=== PATIENT | male | born 1965 ===

== ENCOUNTER 2017-02-02 06:37 | Day surgery (SDC) | payer MEDICARE ==
[2017-01-19 14:16] VITALS: BMI 37.6
[2017-02-02] MEDS ORDERED: Lidocaine 2% w Epi 1:100,000 Inj IJ ONE (07:35)
[2017-02-02] MEDS ORDERED: Lactated Ringer's 1,000 ML IV ONE (07:50)
[2017-02-02] MEDS ORDERED: Propofol 10 mg/ml Inj (20 ML) ONE (07:51)
[2017-02-02] MEDS ORDERED: Midazolam 2 MG/2 ML VIAL ONE (07:51)
[2017-02-02] MEDS ORDERED: Clindamycin 300 mg/2 ml Inj ONE (08:08)
[2017-02-02] MEDS ORDERED: Succinylcholine Chloride 20 mg/ml Syr (5 ml) IV ONE (09:40)
[2017-02-02] MEDS ORDERED: Rocuronium 10 mg/ml (5 ml) ONE (09:40)
[2017-02-02] MEDS ORDERED: Neostigmine Methylsulfate 3mg/3ml Syringe IV ONE (09:40)
[2017-02-02] MEDS ORDERED: Dexamethasone 4 mg/1 ml IVP PRN (09:52)
[2017-02-02] MEDS ORDERED: Albuterol 0.083% Inhal Sol (2.5 mg/3 mL) UD INH PRN (09:52)
--- NOTE | 2017-02-02 09:52 | PCM.SURG1 ---
Surgeon's Initial Post Op Note - Surgeon's Notes Surgeon: Destiny Falcon MD Database Security Administrator: Jas Cardoso PA-C Type of Anesthesia: General Endo Anesthesia Administered By: Dr. Hernandez/Ángel LAUREANO Pre-Operative Diagnosis: Right knee ACL tear, medial and lateral meniscal tears , chrondromalacia Operative Findings: tourniquet not used. Arthrex implants Post-Operative Diagnosis: same. lateral tibial plateau chondromalacia Operation Performed: 1. Arthroscopic right knee ACL reconstruction with allograft. 2. Partial medial and lateral meniscectomy. 3. Chondroplasty lateral tibial plateau and femoral condyle Specimen/Specimens Removed: none Estimated Blood Loss: EBL {In ML}: 10 Blood Products Given: N/A Drains Used: No Drains Post-Op Condition: Fair Date of Surgery/Procedure: 02/02/17 Time of Surgery/Procedure: 09:52
[2017-02-02] MEDS ORDERED: Oxycodone/Acetaminophen 5/325 mg Tab PO PRN (09:53)
--- NOTE | 2017-02-02 10:03 | OP ---
PROCEDURE DATE: 02/02/2017 PREOPERATIVE DIAGNOSES: Right knee anterior cruciate ligament sprain, medial and lateral meniscal te ars and degenerative joint disease. POSTOPERATIVE DIAGNOSES: Right knee anterior cruciate ligament sprain, medial and lateral meniscal t ears and degenerative joint disease. PROCEDURE: Right knee examination under anesthesia, right knee arthroscopy with ACL reconstruction a nd medial and lateral meniscectomies. SURGEON: Ridge Falcon M.D. GRINDER SET UP OPERATOR: James Cardoso, physician lead dental assistant. Ms Cardoso was scrubbed and present throughout the danna e and assisted was bandaging, holding the camera while the ACL reconstruction was performed as well a s graft preparation. ANESTHESIA: General. COMPLICATIONS: None. ESTIMATED BLOOD LOSS: 10 mL. INDICATIONS FOR PROCEDURE: This is a 51-year-old gentleman who presented with complaints of right kn ee pain and swelling as well as instability. Clinical examination was consistent with severe lateral joint line tenderness, medial joint line tenderness and positive Denice. MRI was consistent with a partial tear of his ACL as well as complex tear of the anterior horn of his lateral meniscus as well as a tear of the posterior horn of the medial meniscus. Recommendations were for right knee arthros copy. The risks, benefits, and alternatives of procedure were discussed with the patient and informe d consent was obtained. OPERATIVE PROCEDURE: After surgical site was signed and verified in preoperative holding area, the p atient was taken to the operating room and placed supine on the operating table. After the administr ation of general anesthesia, the patient received 900 mg of clindamycin IV. An examination under ane sthesia was performed. The patient was noted to have a 2+ Denice and the patient was noted to have a positive pivot. At this point, patient was positioned on the OR table. A lateral post was placed on the lateral aspect of the thigh and Venodyne boot was placed on the nonoperative extremity and the right lower extremity was prepped and draped in usual sterile fashion. Bony landmarks were identifi ed about the right knee and our portal sites were injected with a total of 10 mL of 1% lidocaine with epinephrine. An anterolateral arthroscopy portal was established and arthroscope inserted into the knee joint. Patellofemoral articulation was evaluated. The patient was noted to have some mild raymundo llar tilt. The patient was noted to also have some grade I to grade II chondromalacia of the patello femoral articulation. Medial and lateral gutters as well as suprapatellar recess were noted to be fr ee of any loose bodies or pathologic plica. Next, through an anteromedial portal, the medial compart ment was evaluated. The medial meniscus was probed. The patient was noted to have a small tear of vu mcclure posterior horn of the medial meniscus. Using a combination of basket forceps and a full-radius sh aver, a meniscectomy was performed resecting the meniscus back to a stable rim. The chondral surface s of the medial compartment did have some grade I changes. At this point, the intercondylar notch wa s evaluated. ACL was well visualized. The ACL appeared to be torn off its femoral insertion and ess entially lying flat. PCL was also well visualized and appeared to be intact. Prior to addressing pan kim ACL, the lateral compartment was evaluated. Chondral surface of the lateral tibial plateau was not ed to have some grade III to grade IV chondromalacia. The lateral meniscus was probed and the patien t was noted to have a complex tear encompassing almost the entire anterior horn, extending into the m idportion of the meniscus. Using basket forceps and a full-radius shaver, a meniscectomy. Once this was done, only a small rim of meniscal tissue was left at the junction of the anterior horn to the m id body of the meniscus. In order to have a complete transection of the meniscus, a small cleavage c omponent of the meniscus was still present and this was shaved back in order to prevent complete schmidt section of the meniscus. At this point, our attention was directed back into the intercondylar notch . Using an electrocautery device and the shaver, the remnant of the ACL was debrided. The footprint was also well defined as well as the medial aspect of the lateral femoral condyle. Using a bur, a n otchplasty was performed. At this point, while this was being done, the allograft was prepared by pan kim lead dental assistant on the back table and was sized and appropriately tensioned. Next, using the FlipCutter, a femoral tunnel was drilled and a suture was placed to allow for graft passage. Similarly, using vu mcclure Arthrex tibial tunnel guide, our tibial tunnel was also drilled. Any debris was removed using the shaver and at this point, our graft was removed off the tensioning device and recessed. The femoral fixation was an Arthrex button that was deployed on the anterolateral cortex of the distal femur. T ension was applied on the tibial side confirming good fixation. The graft was then recessed to the a ppropriate depth and the knee was cycled several times. No evidence of any impingement was appreciat ed. The patient had full extension. Finally, the graft was fixed on the tibial side using a bioabso rbable screw with the knee held in extension. At this point, an intraoperative Denice was performed and the patient was noted to have a 0 Denice. Any remaining debris was removed using the shaver an d our incisions were closed in a layered fashion. Sterile dressing was applied and a knee immobilize r was placed. The patient was awakened from the procedure and taken to recovery room in stable and s atisfactory condition. Ridge Falcon MD cc: [id number] TT: 02/02/2017 10:02:06 tn
[2017-02-02] MEDS: HYDROmorphone 0.5 mg/0.5 ml ISec IVP PRN ×4 (10:05→11:55)
[2017-02-02] MEDS ORDERED: Bupivacaine HCl 0.5% PF (10 ml) Inj ONE (10:40)
[2017-02-02] MEDS ORDERED: Bupivacaine HCl 0.25% PF (10 ml) Inj ONE ×2 (10:41)
[2017-02-02] MEDS ORDERED: Lidocaine Hydrochloride 5 ML INJ ONE (10:42)
[2017-02-02] MEDS ORDERED: Midazolam 2 MG/2 ML VIAL IVP STA (12:03)
--- NOTE | 2017-02-02 12:59 | RAD ---
PROCEDURE: Right Knee Radiographs. Portable study 10:30. HISTORY: s/p acl recon COMPARISON: None. FINDINGS: BONES: Expected postoperative findings status post ACL repair. JOINTS: Normal. No osteoarthritis. JOINT EFFUSION: None. OTHER FINDINGS: Soft tissues swelling with primarily laterally. IMPRESSION: Satisfactory postoperative status.
[2017-02-02 13:18] VITALS: O2SAT 96
[2017-02-02 15:27] VITALS: BP 124/81; PULSE 83; RESP 20; TEMP 98
== END 2017-02-02 15:15 | disposition home or self-care (01) ==
LOC: C.SDS 06:37
PROVIDERS: ATTEND Orthopaedic Surgery
DX: S83.511S Sprain of anterior cruciate ligament of right knee, sequela (principal); M23.241 Derangement of anterior horn of lateral meniscus due to old tear or injury, right knee; M23.221 Derangement of posterior horn of medial meniscus due to old tear or injury, right knee; M17.11 Unilateral primary osteoarthritis, right knee
CPT/HCPCS: 29867; 29880; 29888; 73560; 97116; 97161; G8978; G8979; G8980; J0131; J1170; J1885; J2001; J2250; J2405; J2704; J2710; J3010; J7120

== ENCOUNTER 2017-02-04 13:58 | Emergency (ER) | payer MEDICARE ==
[2017-02-04 14:01] VITALS: BMI 37.6
--- NOTE | 2017-02-04 15:13 | C.PDOC ---
History Of Present Illness 51 year old male presents to the ED with complaints of right knee pain. Patient states he is 2 days s/p surgery performed by Dr. Lorenzo for ACL repair. He also notes he had a panic attack today, and feels short of breath and anxious due to being indoors. He reports taking Percocet makes him feel worse, and denies calf pain, chest pain, fever, or any other complaints at this time. Chief Complaint (Nursing): Lower Extremity Problem/Injury History Per: Patient History/Exam Limitations: no limitations Onset/Duration Of Symptoms: Days Current Symptoms Are (Timing): Still Present Severity: Mild Past Medical History Reviewed: Historical Data, Nursing Documentation, Vital Signs Vital Signs: Last Vital Signs Temp 97.8 F 02/04/17 16:39 Pulse 97 H 02/04/17 16:39 Resp 18 02/04/17 16:39 BP 130/86 02/04/17 16:39 Pulse Ox 96 02/04/17 16:39 - Medical History PMH: Anxiety, Asthma, Hypercholesterolemia ("PURE HYPERCHOLESTEROLEMIA") - [facility] Procedures ANESTH INJECT-SPIN CANAL (06/27/15) INJECT STEROID (06/27/15) INJECT/INFUSE NEC (07/25/04) LUMBOSAC SPINE X-RAY NEC (06/27/15) SPINAL CANAL INJECT NEC (06/27/15) Family History: States: Unknown Family Hx - Social History Hx Alcohol Use: Yes (OCCASIONAL) Hx Substance Use: Yes - Immunization History Hx Tetanus Toxoid Vaccination: No Hx Influenza Vaccination: No Hx Pneumococcal Vaccination: No Review Of Systems Except As Marked, All Systems Reviewed And Found Negative. Constitutional: Negative for: Fever, Chills Cardiovascular: Negative for: Chest Pain, Palpitations Respiratory: Positive for: Shortness of Breath. Negative for: Cough Gastrointestinal: Negative for: Nausea, Vomiting Musculoskeletal: Positive for: Other (+Right knee pain) Neurological: Negative for: Weakness, Numbness Psych: Positive for: Anxiety Physical Exam - Physical Exam Appears: Non-toxic, Other (+Obese + Anxious) Skin: Warm, Dry, No Diaphoretic Head: Atraumatic, Normacephalic Eye(s): bilateral: Normal Inspection Oral Mucosa: Moist Neck: Normal ROM Chest: Symmetrical, No Deformity Cardiovascular: Rhythm Regular, No Murmur Respiratory: Normal Breath Sounds, No Accessory Muscle Use, No Rales, No Rhonchi , No Wheezing Extremity: No Calf Tenderness, Other (+Knee immobilizer to the right knee) Pulses: Left Dorsalis Pedis: Normal, Right Dorsalis Pedis: Normal Neurological/Psych: Oriented x3, Normal Speech, Normal Cognition, Normal Sensation ED Course And Treatment O2 Sat by Pulse Oximetry: 99 (Nasal cannula) Pulse Ox Interpretation: Normal Medical Decision Making Medical Decision Making: Impression: 51 year old male with right knee pain and anxiety. Plan: * O2 * Ultram * Xanax * Reassess Progress: Case discussed with SALVADOR Ramirez (Ortho) who spoke to Dr. Lorenzo and advised discharge and follow up in office Patient stable for discharge Disposition Counseled Patient/Family Regarding: Need For Followup, Rx Given - Disposition Referrals: Ridge Falcon MD [Staff Provider] - Disposition: HOME/ ROUTINE Disposition Time: 16:03 Condition: IMPROVED Additional Instructions: Follow up with your ortho Prescriptions: traMADol [Ultram] 50 mg PO Q8 #20 tab Instructions: Knee Pain (ED) - POA Present On Arrival: None - Clinical Impression Clinical Impression: Anxiety attack, Drug side effects, Knee pain - PA / SAW REPAIRER / Resident Statement MD/DO has reviewed & agrees with the documentation as recorded. - Scribe Statement The provider has reviewed the documentation as recorded by the Scribe Jordana Serrato. All medical record entries made by the Scribe were at my direction and personally dictated by me. I have reviewed the chart and agree that the record accurately reflects my personal performance of the history, physical exam, medical decision making, and the department course for this patient. I have also personally directed, reviewed, and agree with the discharge instructions and disposition.
[2017-02-04 16:40] VITALS: BP 130/86; PULSE 97; RESP 18; TEMP 97.8
[2017-02-04 17:47] VITALS: O2SAT 99
== END 2017-02-04 16:50 | disposition home or self-care (01) ==
LOC: C.ER 13:58
DX: F41.9 Anxiety disorder, unspecified (principal); T50.905A Adverse effect of unspecified drugs, medicaments and biological substances, initial encounter; M25.561 Pain in right knee

== ENCOUNTER 2017-03-02 17:55 | Observation (INO) | payer MEDICARE, OTHER ==
[2017-03-02 17:55] VITALS: BMI 37.6
--- NOTE | 2017-03-02 18:20 | C.PDOC ---
History Of Present Illness 51M c/o right ankle pain and swelling for the last month since he had right knee surgery. he said he saw his pcp yesterday who gave him abx and he says the swelling is better today after taking these. he denies any fever, chills, n/v, or other systemic sx. Time Seen by Provider: 03/02/17 18:16 Chief Complaint (Nursing): Abnormal Skin Integrity Past Medical History Vital Signs: Last Vital Signs Temp 97.8 F 03/02/17 18:00 Pulse 105 H 03/02/17 18:00 Resp 18 03/02/17 18:00 BP 152/74 H 03/02/17 18:00 Pulse Ox 97 03/02/17 18:39 - Medical History PMH: Anxiety, Asthma, Hypercholesterolemia ("PURE HYPERCHOLESTEROLEMIA") Denies: Chronic Kidney Disease Surgical History: Denies: Pacemaker - [facility] Procedures ANESTH INJECT-SPIN CANAL (06/27/15) INJECT STEROID (06/27/15) INJECT/INFUSE NEC (07/25/04) LUMBOSAC SPINE X-RAY NEC (06/27/15) SPINAL CANAL INJECT NEC (06/27/15) Family History: States: Other Other Family History: nc - Social History Hx Alcohol Use: Yes (OCCASIONAL) Hx Substance Use: Yes - Immunization History Hx Tetanus Toxoid Vaccination: No Hx Influenza Vaccination: No Hx Pneumococcal Vaccination: No Review Of Systems Except As Marked, All Systems Reviewed And Found Negative. Constitutional: Negative for: Fever, Chills, Weakness, Malaise Eyes: Negative for: Vision Change Cardiovascular: Negative for: Chest Pain Respiratory: Negative for: Cough, Shortness of Breath Gastrointestinal: Negative for: Nausea, Vomiting, Abdominal Pain Musculoskeletal: Positive for: Other (ankle pain) Neurological: Negative for: Weakness, Numbness Physical Exam - Physical Exam Appears: Non-toxic, No Acute Distress Skin: Warm, Dry Head: Atraumatic Eye(s): bilateral: PERRL Oral Mucosa: Moist Neck: Normal ROM Cardiovascular: Rhythm Regular Respiratory: No Decreased Breath Sounds, No Accessory Muscle Use Gastrointestinal/Abdominal: Soft, No Tenderness Extremity: Normal ROM, Swelling (right ankle- rom normal, some warmth, no redness) Pulses: Left Dorsalis Pedis: Normal, Right Dorsalis Pedis: Normal Neurological/Psych: Oriented x3, Normal Motor, Normal Sensation, Other (no focal deficits) ED Course And Treatment O2 Sat by Pulse Oximetry: 97 Medical Decision Making Medical Decision Makin disc w Dr Falcon- rec give IV abx and admit and he will see in the am. will cover maría ham. Disposition - Disposition Disposition: HOSPITALIZED Disposition Time: 18:39 Condition: STABLE - Clinical Impression Clinical Impression: Cellulitis, Ankle swelling
[2017-03-02] MEDS ORDERED: Sodium Chloride 0.9% 1,000 ML IV ONE (18:30)
[2017-03-02] MEDS ORDERED: Enoxaparin 100 mg Syringe SC STA (18:37)
[2017-03-02 19:02] LABS: BASO # 0.1 K/uL (0.0-0.2); BASO % 0.6 % (0.0-2.0); EOS # 0.4 K/uL (0.0-0.7); EOS % 3.2 % (0.0-4.0); HEMATOCRIT 38.8 % (35.0-51.0); LYMPH # 2.3 K/uL (1.0-4.3); LYMPH % 19.4 % (20.0-40.0); MEAN CELL VOLUME 83.5 fL (80.0-94.0); MEAN CORPUSCULAR HEMOGLOBIN 28.3 pg (27.0-31.0); MEAN CORPUSCULAR HGB CONC 33.9 g/dL (33.0-37.0); MEAN PLATELET VOLUME 7.3 fL (7.2-11.7); MONO # 1.1 K/uL (0.0-0.8); MONO % 9.2 % (0.0-10.0); VENOUS BLOOD GAS BASE EXCESS 5.2 mmol/L (0.0-2.0); VENOUS BLOOD GAS PCO2 43 mmHg (40-60); VENOUS BLOOD PH 7.45 (7.32-7.43); WHITE BLOOD COUNT 11.6 K/uL (4.8-10.8)
[2017-03-02] MEDS ORDERED: Enoxaparin 30 mg Syringe ONE (19:05)
[2017-03-02] MEDS ORDERED: Enoxaparin 80 mg Syringe ONE (19:05)
[2017-03-02] MEDS ORDERED: Clindamycin 600mg/50ml D5W 600 MG/50 ML VIAL IVPB ONE (19:06)
[2017-03-02 19:10] LABS: CHLORIDE 98 mmol/L (98-107)
[2017-03-02 19:11] LABS: POTASSIUM 3.8 mmol/L (3.6-5.2); SODIUM 139 mmol/L (132-148)
[2017-03-02 19:13] LABS: ALB/GLOB RATIO 1.2 (1.0-2.1); ALKALINE PHOSPHATASE 78 U/L (38-126); ALT/SGPT 24 U/L (21-72); AST/SGOT 19 U/L (17-59); BILIRUBIN,TOTAL 0.7 mg/dL (0.2-1.3); BLOOD UREA NITROGEN 13 mg/dL (9-20); CARBON DIOXIDE 29 mmol/L (22-30); GFR AFRICAN-AMERICAN > 60; TOTAL PROTEIN 7.6 g/dL (6.3-8.3)
[2017-03-02 19:14] LABS: CALCIUM 8.7 mg/dl (8.6-10.4); GLUCOSE,RANDOM 117 mg/dL (75-110)
[2017-03-02 19:15] VITALS: RESP 20
[2017-03-02] MEDS ORDERED: Enoxaparin 40 mg Syringe SC ONE (22:16)
[2017-03-02] MEDS ORDERED: Oxycodone/Acetaminophen 5/325 mg Tab PO PRN (22:19)
[2017-03-03] MEDS: Clindamycin 600mg/50ml D5W 600 MG/50 ML VIAL IVPB SCH ×2 (04:06→11:11)
[2017-03-03 04:39] VITALS: TEMP 97.6; O2SAT 98
--- NOTE | 2017-03-03 06:49 | CP.PCM.HP ---
History of Present Illness - History of Present Illness History of Present Illness: 51M s/p right knee arthroscopic ACL reconstruction with allograft 02/02/2017 complains of right ankle pain and swelling post operatively. He says that his primary care doctor said that his knee was infected and started him on antibiotics yesterday, which helped some. He says he is most concerned with ankle swelling and pain, and that it hurts so much that he can't walk well. He currently denies knee pain. Denies fever/chills. Denies any CP/SOB/dizziness/ palpitations. Denies drainage from surgical site wounds. He says he is not sleeping well, but he slept well last night while in hospital . Present on Admission - Present on Admission Any Indicators Present on Admission: No Review of Systems - Review of Systems All systems: reviewed and no additional remarkable complaints except - Constitutional Constitutional: As Per HPI - Cardiovascular Cardiovascular: As Per HPI - Musculoskeletal Musculoskeletal: As Per HPI - Neurological Neurological: As Per HPI - Hematologic/Lymphatic Hematologic: absent: As Per HPI, Easy Bleeding, Easy Bruising, Lymphadenopathy, Other Past Patient History - Past Medical History & Family History Past Medical History?: Yes - Past Social History Smoking Status: Current Some Days Smoker - CARDIAC Hx Hypercholesterolemia: Yes ("PURE HYPERCHOLESTEROLEMIA") Hx Pacemaker: No - PULMONARY Hx Asthma: Yes - NEUROLOGICAL Hx Neurological Disorder: No Hx Paralysis: No - HEENT Hx HEENT Problems: No - RENAL Hx Chronic Kidney Disease: No - ENDOCRINE/METABOLIC Hx Diabetes Mellitus Type 2: (DENIES DIABETES) - INTEGUMENTARY Hx Dermatological Problems: No - MUSCULOSKELETAL/RHEUMATOLOGICAL Hx Musculoskeletal Disorders: Yes Hx Falls: No Other/Comment: MENISCAL TEAR RIGHT KNEE - GASTROINTESTINAL Hx Gastrointestinal Disorders: No - GENITOURINARY/GYNECOLOGICAL Hx Genitourinary Disorders: No - PSYCHIATRIC Hx Anxiety: Yes Hx Substance Use: Yes - SURGICAL HISTORY Hx Surgeries: Yes Hx Orthopedic Surgery: Yes (RIGHT KNEE MINISCUS REPAIR) Other/Comment: spinal surgey. HX: RIGHT L5-S1 SELECTIVE ROOT NERVE BLOCK(). - ANESTHESIA Hx Anesthesia: Yes Hx Anesthesia Reactions: No Hx Malignant Hyperthermia: No Meds Allergies/Adverse Reactions: Allergies Allergy/AdvReac Type Severity Reaction Status Date / Time Penicillins Allergy RASH Verified 03/02/17 18:03 cats Allergy RASH Uncoded 03/02/17 18:03 Physical Exam - Constitutional Appears: Well, No Acute Distress - Extremities Exam Additional comments: RLE: mild swelling to right ankle and foot. No erythema. No lower leg swelling. Generalized tenderness to ankle and foot. +DP/PT pulses. Full ROM of ankle with minimal pain. Right knee: all incision sites dry. Mild incisional erythema. Noted area of swelling to distal most incision site, ? suture abscess. This area is non tender. No pain with ROM of knee. No joint effusion, stable post operative appearance of knee joint. No warmth. Calves soft NT neg homans. Sensation intact RLE Results - Vital Signs Recent Vital Signs: Last Vital Signs Temp 97.6 F 03/02/17 23:10 Pulse 83 03/02/17 23:10 Resp 20 03/02/17 23:10 BP 132/88 03/02/17 23:10 Pulse Ox 98 03/02/17 23:10 - Labs Result Diagrams: 03/02/17 18:55 03/02/17 18:55 Labs: Laboratory Results - last 24 hr 03/02/17 03/02/17 03/02/17 18:55 18:55 18:55 WBC 11.6 H RBC 4.64 Hgb 13.1 Hct 38.8 MCV 83.5 MCH 28.3 MCHC 33.9 RDW 14.0 Plt Count 431 H MPV 7.3 Neut % (Auto) 67.6 Lymph % (Auto) 19.4 L Pitkin % (Auto) 9.2 Eos % (Auto) 3.2 Baso % (Auto) 0.6 Neut # 7.9 H Lymph # 2.3 Pitkin # 1.1 H Eos # 0.4 Baso # 0.1 ESR 40 H pO2 55 VBG pH 7.45 H VBG pCO2 43 VBG HCO3 28.8 VBG Total CO2 31.2 H VBG O2 Sat (Calc) 93.2 H VBG Base Excess 5.2 H VBG Potassium 3.7 Sodium 140.0 139 Chloride 106.0 98 Glucose 111 H Lactate 1.5 Potassium 3.8 Carbon Dioxide 29 Anion Gap 16 BUN 13 Creatinine 0.9 Est GFR ( Amer) > 60 Est GFR (Non-Af Amer) > 60 Random Glucose 117 H Calcium 8.7 Total Bilirubin 0.7 AST 19 ALT 24 Alkaline Phosphatase 78 C-React Prot High Sens Total Protein 7.6 Albumin 4.1 Globulin 3.5 Albumin/Globulin Ratio 1.2 Venous Blood Potassium 3.7 03/02/17 18:55 WBC RBC Hgb Hct MCV MCH MCHC RDW Plt Count MPV Neut % (Auto) Lymph % (Auto) Pitkin % (Auto) Eos % (Auto) Baso % (Auto) Neut # Lymph # Pitkin # Eos # Baso # ESR pO2 VBG pH VBG pCO2 VBG HCO3 VBG Total CO2 VBG O2 Sat (Calc) VBG Base Excess VBG Potassium Sodium Chloride Glucose Lactate Potassium Carbon Dioxide Anion Gap BUN Creatinine Est GFR ( Amer) Est GFR (Non-Af Amer) Random Glucose Calcium Total Bilirubin AST ALT Alkaline Phosphatase C-React Prot High Sens > 15.00 H Total Protein Albumin Globulin Albumin/Globulin Ratio Venous Blood Potassium Assessment & Plan (1) Post-operative pain Assessment and Plan: clindamycin patient afebrile, no deep infection suspected to be seen by Dr. Falcon knee xrays dopplers Status: Acute (2) Right ankle swelling Assessment and Plan: Likely pain from dependent swelling from surgery xrays right ankle ap/mortise/lateral reviewed. No bony abnormalities, fracture, or dislocation appreciated. Negative xrays. Elevation dopplers r/o DVT today PT referral d/w Dr. Falcon, agrees with above Status: Acute
[2017-03-03 08:14] VITALS: BP 125/69; PULSE 74
--- NOTE | 2017-03-03 09:50 | RAD ---
PROCEDURE: Right Ankle Radiographs. HISTORY: swelling pain COMPARISON: None FINDINGS: BONES: Nondisplaced avulsion fracture of the tip of the lateral malleolus. No other fracture identified. JOINTS: Normal. No osteoarthritis. Ankle mortise maintained. Talar dome intact SOFT TISSUES: Normal. OTHER FINDINGS: None. IMPRESSION: Nondisplaced avulsion fracture of the lateral malleolus.
--- NOTE | 2017-03-03 10:16 | RAD ---
PROCEDURE: Right Knee Radiographs. HISTORY: s/p knee surgery COMPARISON: None. FINDINGS: BONES: No acute fracture. There is anchor seen at the lateral supracondylar distal femur. A subtly lucent tibial tunnel is seen extending from the intercondylar notch to this anchor. Along the JOINTS: Narrowed lateral joint compartment. Lesser medial and patellofemoral osteoarthritis. No articular erosions. JOINT EFFUSION: Trace OTHER FINDINGS: None. IMPRESSION: Tricompartmental osteoarthritis. Status post orthopedic surgery, likely ACL repair.
--- NOTE | 2017-03-03 13:26 | VASCLAB ---
PROCEDURE: Right Lower Extremity Venous Duplex Exam. HISTORY: swelling pain after surgery PRIORS: None. TECHNIQUE: Right common femoral, femoral, popliteal and posterior tibial, peroneal and great saphenous veins were evaluated. Flow was assessed with color Doppler, compressibility, assessment of phasic flow and augmentation response. Report prepared by SVEN Jacinto, RVT FINDINGS: RIGHT: 1. Common Femoral Vein: 1.1. Compressibility - Fully compressible: Thrombus - None: Flow - Phasic: Augmentation -Normal: Reflux - None. 2. Femoral Vein: 2.1. Compressibility - Fully compressible: Thrombus - None: Flow - Phasic: Augmentation -Normal: Reflux - None. 3. Popliteal Vein: 3.1. Compressibility - Fully compressible: Thrombus - None: Flow - Phasic: Augmentation -Normal: Reflux - None. 4. Posterior Tibial Vein: 4.1. Compressibility - Fully compressible: Thrombus - None: Flow - Phasic: Augmentation -Normal: Reflux - None. 5. Peroneal Vein: 5.1. Compressibility - Fully compressible: Thrombus - None: Flow - Phasic: Augmentation -Normal: Reflux - None. 6. Great Saphenous Vein: 6.1. Compressibility - Fully compressible: Thrombus -None: Flow - Phasic: Augmentation - Normal: Reflux - None. OTHER FINDINGS: IMPRESSION: No evidence of deep or superficial vein thrombosis of the right lower extremity with excellent venous flow. Normal valve function noted of the right side. Normal venous flow noted in the left common femoral vein.
--- NOTE | 2017-03-03 14:17 | CP.PCM.DIS ---
Provider - Provider Date of Admission: 03/02/17 18:38 Attending physician: Ridge Palm MD Time Spent in preparation of Discharge (in minutes): 5 Diagnosis - Discharge Diagnosis (1) Post-operative pain Status: Acute (2) Right ankle swelling Status: Acute Hospital Course - Lab Results Lab Results: Most Recent Lab Values WBC 11.6 K/uL (4.8-10.8) H 03/02/17 18:55 RBC 4.64 Mil/uL (4.40-5.90) 03/02/17 18:55 Hgb 13.1 g/dL (12.0-18.0) 03/02/17 18:55 Hct 38.8 % (35.0-51.0) 03/02/17 18:55 MCV 83.5 fL (80.0-94.0) 03/02/17 18:55 MCH 28.3 pg (27.0-31.0) 03/02/17 18:55 MCHC 33.9 g/dL (33.0-37.0) 03/02/17 18:55 RDW 14.0 % (11.5-14.5) 03/02/17 18:55 Plt Count 431 K/uL (130-400) H 03/02/17 18:55 MPV 7.3 fL (7.2-11.7) 03/02/17 18:55 Neut % (Auto) 67.6 % (50.0-75.0) 03/02/17 18:55 Lymph % (Auto) 19.4 % (20.0-40.0) L 03/02/17 18:55 Mathews % (Auto) 9.2 % (0.0-10.0) 03/02/17 18:55 Eos % (Auto) 3.2 % (0.0-4.0) 03/02/17 18:55 Baso % (Auto) 0.6 % (0.0-2.0) 03/02/17 18:55 Neut # 7.9 K/uL (1.8-7.0) H 03/02/17 18:55 Lymph # 2.3 K/uL (1.0-4.3) 03/02/17 18:55 Mathews # 1.1 K/uL (0.0-0.8) H 03/02/17 18:55 Eos # 0.4 K/uL (0.0-0.7) 03/02/17 18:55 Baso # 0.1 K/uL (0.0-0.2) 03/02/17 18:55 ESR 40 mm/hr (0-15) H 03/02/17 18:55 pO2 55 mm/Hg (30-55) 03/02/17 18:55 VBG pH 7.45 (7.32-7.43) H 03/02/17 18:55 VBG pCO2 43 mmHg (40-60) 03/02/17 18:55 VBG HCO3 28.8 mmol/L 03/02/17 18:55 VBG Total CO2 31.2 mmol/L (22-28) H 03/02/17 18:55 VBG O2 Sat (Calc) 93.2 % (40-65) H 03/02/17 18:55 VBG Base Excess 5.2 mmol/L (0.0-2.0) H 03/02/17 18:55 VBG Potassium 3.7 mmol/L (3.6-5.2) 03/02/17 18:55 Sodium 140.0 mmol/l (132-148) 03/02/17 18:55 Chloride 106.0 mmol/L (98-107) 03/02/17 18:55 Glucose 111 mg/dl (75-110) H 03/02/17 18:55 Lactate 1.5 mmol/L (0.7-2.1) 03/02/17 18:55 Sodium 139 mmol/L (132-148) 03/02/17 18:55 Potassium 3.8 mmol/L (3.6-5.2) 03/02/17 18:55 Chloride 98 mmol/L (98-107) 03/02/17 18:55 Carbon Dioxide 29 mmol/L (22-30) 03/02/17 18:55 Anion Gap 16 (10-20) 03/02/17 18:55 BUN 13 mg/dL (9-20) 03/02/17 18:55 Creatinine 0.9 MG/DL (0.8-1.5) 03/02/17 18:55 Est GFR ( Amer) > 60 03/02/17 18:55 Est GFR (Non-Af Amer) > 60 03/02/17 18:55 Random Glucose 117 mg/dL (75-110) H 03/02/17 18:55 Uric Acid 7.2 mg/dL (3.5-8.5) 03/03/17 11:24 Calcium 8.7 mg/dl (8.6-10.4) 03/02/17 18:55 Total Bilirubin 0.7 mg/dL (0.2-1.3) 03/02/17 18:55 AST 19 U/L (17-59) 03/02/17 18:55 ALT 24 U/L (21-72) 03/02/17 18:55 Alkaline Phosphatase 78 U/L (38-126) 03/02/17 18:55 C-React Prot High Sens > 15.00 mg/L (1.00-3.00) H 03/02/17 18:55 Total Protein 7.6 g/dL (6.3-8.3) 03/02/17 18:55 Albumin 4.1 g/dL (3.5-5.0) 03/02/17 18:55 Globulin 3.5 gm/dL (2.2-3.9) 03/02/17 18:55 Albumin/Globulin Ratio 1.2 (1.0-2.1) 03/02/17 18:55 Venous Blood Potassium 3.7 mmol/L (3.6-5.2) 03/02/17 18:55 - Hospital Course Hospital Course: 51M 1 month s/p right knee arthroscopic ACL reconstruction with allograft, partial medial and lateral meniscectomies, and chondroplasty lateral compartment , comes to ER with complaints of right ankle pain and swelling. He says that he saw PMD 1 day prior to admission, and was told his knee incisions were infected and started on levaquin. Patient denies any recent trauma or falls, but says the ankle pain and swelling is now making it difficult to walk. Patient afebrile, no leukocytosis. Right knee wounds had minimal incisional erythema, and small suture abscess, without any significant infection. Advised patient this will eventually come to surface. No deep infection suspected. BLE dopplers were negative for DVT. Xrays of right ankle showed a possible tiny avulsion to right lateral malleolus, which is area of point tenderness. Patient was instructed to obtain right CAM walker boot, WBAT in boot only, NWB without. Patient instructed to continue PT for knee, and to f/u in office Dr. Palm day after d/c. Patient was discharged with clindamycin 300mg PO QID x 14 days. Discharge Plan - Discharge Medications Prescriptions: Clindamycin [Cleocin] 300 mg PO Q6H #56 cap - Follow Up Plan Condition: STABLE Disposition: HOME/ ROUTINE Instructions: Clindamycin (By mouth), Swollen Joint (GEN) Referrals: Ridge Palm MD [Staff Provider] - 1 Week (Patient to go to office for CAM boot tomorrow WBAT in boot f/u within 1 week elevation )
[2017-03-04] MEDS ORDERED: Pneumococcal 23-Valent Vaccine IM ONE (10:00)
== END 2017-03-03 15:00 | disposition home or self-care (01) ==
LOC: C.ER 17:55 → C.9E 18:38 → C.6T 19:17
PROVIDERS: ADMIT Orthopaedic Surgery; ATTEND Orthopaedic Surgery
DX: S82.61XA Displaced fracture of lateral malleolus of right fibula, initial encounter for closed fracture (principal); M17.9 Osteoarthritis of knee, unspecified; J45.909 Unspecified asthma, uncomplicated; G89.18 Other acute postprocedural pain

== ENCOUNTER 2017-09-28 07:37 | Inpatient (IN) | payer MEDICARE, MEDICAID ==
[2017-09-15 09:34] VITALS: BMI 36.4
[2017-09-28] MEDS ORDERED: Bupivacaine Liposomal Inj 20 ml INFIL ONE (07:51)
--- NOTE | 2017-09-28 07:52 | CP.PCM.HP ---
History of Present Illness - History of Present Illness History of Present Illness: 52M with left knee DJD failed conservative mgmt and elected for TKR. Present on Admission - Present on Admission Any Indicators Present on Admission: No Review of Systems - Review of Systems All systems: reviewed and no additional remarkable complaints except - Musculoskeletal Musculoskeletal: As Per HPI Past Patient History - Past Medical History & Family History Past Medical History?: Yes - Past Social History Smoking Status: Current Some Days Smoker - CARDIAC Hx Cardiac Disorders: No - PULMONARY Hx Respiratory Disorders: Yes Hx Asthma: Yes (NEVER HOSPITALIZED) - NEUROLOGICAL Hx Neurological Disorder: No - HEENT Hx HEENT Problems: No - RENAL Hx Chronic Kidney Disease: No - ENDOCRINE/METABOLIC Hx Endocrine Disorders: No - HEMATOLOGICAL/ONCOLOGICAL Hx Blood Disorders: No - INTEGUMENTARY Hx Dermatological Problems: No - MUSCULOSKELETAL/RHEUMATOLOGICAL Hx Musculoskeletal Disorders: Yes Hx Back Pain: Yes Hx Herniated Disk: Yes (DISECTOMY LUMBAR) Hx Osteoarthritis: Yes Other/Comment: MENISCAL TEAR RIGHT KNEE - GASTROINTESTINAL Hx Gastrointestinal Disorders: No - GENITOURINARY/GYNECOLOGICAL Hx Genitourinary Disorders: No - PSYCHIATRIC Hx Psychophysiologic Disorder: Yes Hx Anxiety: Yes (CLAUSTOPHOBIA) Hx Substance Use: Yes (MARIJAUNA OCCASIONALLY) - SURGICAL HISTORY Hx Surgeries: Yes Hx Musculoskeletal Surgery: Yes (LUMBAR DISECTOMY) Hx Orthopedic Surgery: Yes (RIGHT KNEE MINISCUS REPAIR) Other/Comment: X: RIGHT L5-S1 SELECTIVE ROOT NERVE BLOCK(12/21/16). - ANESTHESIA Hx Anesthesia: Yes Hx Anesthesia Reactions: No Hx Malignant Hyperthermia: No Has any member of the family had a problem w/ anesthesia?: Yes (NAUSEA VOMITTING MOTHER) Meds Allergies/Adverse Reactions: Allergies Allergy/AdvReac Type Severity Reaction Status Date / Time Penicillins Allergy RASH Verified 03/02/17 18:03 cats Allergy RASH Uncoded 03/02/17 18:03 Physical Exam - Constitutional Appears: Well, No Acute Distress - Head Exam Head Exam: ATRAUMATIC - Respiratory Exam Respiratory Exam: NORMAL BREATHING PATTERN - Extremities Exam Additional comments: LLE: +ROM ankle/toes/knee, incisions well healed, calves soft NT neg homans sensation intact +DP pulse - Neurological Exam Neurological exam: Alert, Oriented x3 - Psychiatric Exam Psychiatric exam: Normal Affect, Normal Mood - Skin Skin Exam: Dry, Intact, Normal Color, Warm Results - Labs Result Diagrams: 09/29/17 07:18 12/13/17 07:18 Assessment & Plan (1) Primary osteoarthritis of left knee Assessment and Plan: NPO for TKR t&s Status: Acute (2) HTN (hypertension) Status: Chronic (3) Asthma Status: Chronic
[2017-09-28] MEDS ORDERED: Tranexamic Acid 100 mg/ml IV ONE (08:00)
[2017-09-28] MEDS ORDERED: Midazolam 2 MG/2 ML VIAL ONE (10:32)
[2017-09-28] MEDS ORDERED: Propofol 10 mg/ml Inj (20 ML) ONE (10:32)
[2017-09-28] MEDS ORDERED: Succinylcholine Chloride 20 mg/ml Syr (5 ml) IV ONE (10:34)
[2017-09-28] MEDS ORDERED: Clindamycin 600mg/50ml NS 1,200 MG/100 ML BAG IVPB ONE (10:44)
[2017-09-28] MEDS ORDERED: Lactated Ringer's 1,000 ML IV ONE ×2 (10:44→12:00)
[2017-09-28] MEDS ORDERED: HYDROmorphone 1 mg/ml ISec IVP PRN (10:51)
[2017-09-28] MEDS ORDERED: Sodium Chloride 0.9% 20 ML IV ONE (11:40)
[2017-09-28] MEDS: Bacitracin 150,000 UNIT in Sodium Chloride 0.9% Irrig 3,000 ML IR SCH ×2 (12:00→12:30)
[2017-09-28] MEDS ORDERED: Vancomycin 1 g Inj ONE (12:18)
[2017-09-28] MEDS ORDERED: Neostigmine Methylsulfate 3mg/3ml Syringe IV ONE (12:27)
[2017-09-28] MEDS: HYDROmorphone 0.5 mg/0.5 ml ISec IVP PRN ×6 (14:02→21:57)
[2017-09-28] MEDS ORDERED: Labetalol 5 mg/ml Inj 20ML IV ONE (14:02)
[2017-09-28] MEDS ORDERED: HYDROmorphone 0.5 mg/0.5 ml ISec ONE (14:03)
[2017-09-28] MEDS ORDERED: Albuterol-Ipratrop 3 mg / 0.5 (3 ml) UD INH PRN (14:07)
[2017-09-28] MEDS ORDERED: Bupivacaine HCl 0.25% PF (10 ml) Inj ONE (14:19)
--- NOTE | 2017-09-28 14:21 | CP.PCM.CON ---
<Alessandra Cr - Last Filed: 09/28/17 16:14> History of Present Illness - History of Present Illness History of Present Illness: Medicine Consult Note for Hospitalist Service - Dr. Hermila Thomason Reason for consult: Hx of Asthma, COPD, patient desaturated s/p extubation HPI: Medicine Team were consulted for a 52M with PMHx of HTN, COPD, Asthma, HLD , Anxiety who is s/p left TKR. During extubation he desaturated to 89-90%, the ET tube had yellow phlegm around the tube. Medicine Team consulted for medical management. Patient reports he had a productive cough at home for 2 days, denied fever, chills, body ache associated with the cough. Admitted to smoking - no plans of quitting. Patient reports last time he saw a physician was for pre -op clearance. S/P left knee nerve block. Denied fever, chills, headache, chest pain, SOB, abdominal pain, n/v/d/c, or urinary symptoms. PMHx: PMHx of HTN, COPD, Asthma, HLD, Anxiety PSHx: Back surgery, right knee arthroscopic ACL reconstruction Meds: As per DEC All: PCN - hives SHx: Admitted to 10/19 PPD since the age of 13- no intention to quit, social ETOH use, smokes marijuana FHx: Father had CABG performed Ortho: Dr. Falcon Past Patient History - Past Medical History & Family History Past Medical History?: Yes - Past Social History Smoking Status: Current Some Days Smoker - CARDIAC Hx Cardiac Disorders: No - PULMONARY Hx Respiratory Disorders: Yes Hx Asthma: Yes (NEVER HOSPITALIZED) - NEUROLOGICAL Hx Neurological Disorder: No - HEENT Hx HEENT Problems: No - RENAL Hx Chronic Kidney Disease: No - ENDOCRINE/METABOLIC Hx Endocrine Disorders: No - HEMATOLOGICAL/ONCOLOGICAL Hx Blood Disorders: No - INTEGUMENTARY Hx Dermatological Problems: No - MUSCULOSKELETAL/RHEUMATOLOGICAL Hx Musculoskeletal Disorders: Yes Hx Back Pain: Yes Hx Herniated Disk: Yes (DISECTOMY LUMBAR) Hx Osteoarthritis: Yes Other/Comment: MENISCAL TEAR RIGHT KNEE - GASTROINTESTINAL Hx Gastrointestinal Disorders: No - GENITOURINARY/GYNECOLOGICAL Hx Genitourinary Disorders: No - PSYCHIATRIC Hx Psychophysiologic Disorder: Yes Hx Anxiety: Yes (CLAUSTOPHOBIA) Hx Substance Use: Yes (MARIJAUNA OCCASIONALLY) - SURGICAL HISTORY Hx Surgeries: Yes Hx Musculoskeletal Surgery: Yes (LUMBAR DISECTOMY) Hx Orthopedic Surgery: Yes (RIGHT KNEE MINISCUS REPAIR) Other/Comment: X: RIGHT L5-S1 SELECTIVE ROOT NERVE BLOCK(12/21/16). - ANESTHESIA Hx Anesthesia: Yes Hx Anesthesia Reactions: No Hx Malignant Hyperthermia: No Has any member of the family had a problem w/ anesthesia?: Yes (NAUSEA VOMITTING MOTHER) Meds Allergies/Adverse Reactions: Allergies Allergy/AdvReac Type Severity Reaction Status Date / Time Penicillins Allergy RASH Verified 03/02/17 18:03 cats Allergy RASH Uncoded 03/02/17 18:03 - Medications Medications: Current Medications Acetaminophen (Tylenol 325mg Tab) 975 mg PO Q8H ROBLES Albuterol/Ipratropium (Duoneb 3 Mg/0.5 Mg (3 Ml) Ud) 3 ml INH RQ6 ROBL[facility] Albuterol/Ipratropium (Duoneb 3 Mg/0.5 Mg (3 Ml) Ud) 3 ml INH RQ2 PRN PRN Reason: Wheezing Docusate Sodium (Colace) 100 mg PO BID [facility] Enoxaparin Sodium (Lovenox) 40 mg SC Q24H [facility] Gabapentin (Neurontin) 800 mg PO TID [facility] Hydromorphone HCl (Dilaudid) 0.5 mg IVP Q4H PRN PRN Reason: Pain, severe (8-10) Hydromorphone HCl (Dilaudid) 0.5 mg IVP Q5M PRN PRN Reason: Pain, severe (8-10) Stop: 09/28/17 16:00 Sodium Chloride (Sodium Chloride 0.9%) 1,000 mls @ 80 mls/hr IV .[id number] [facility] Clindamycin Phosphate 900 mg/ (Sodium Chloride) 106 mls @ 100 mls/hr IVPB Q8H [facility] Stop: 09/29/17 03:04 Ondansetron HCl (Zofran Inj) 4 mg IVP Q6H PRN PRN Reason: Nausea/Vomiting Physical Exam - Constitutional Appears: No Acute Distress - Head Exam Head Exam: NORMAL INSPECTION, NORMOCEPHALIC - Eye Exam Eye Exam: EOMI, Normal appearance, PERRL Pupil Exam: NORMAL ACCOMODATION - ENT Exam ENT Exam: Mucous Membranes Moist, Normal Exam - Respiratory Exam Respiratory Exam: Decreased Breath Sounds, Wheezes - Cardiovascular Exam Cardiovascular Exam: REGULAR RHYTHM - GI/Abdominal Exam GI & Abdominal Exam: Normal Bowel Sounds, Soft. absent: Distended, Tenderness - Extremities Exam Additional comments: Left knee wrapped s/p nerve block - Neurological Exam Neurological exam: Alert, CN II-XII Intact, Oriented x3 - Psychiatric Exam Psychiatric exam: Normal Affect, Normal Mood - Skin Skin Exam: Dry, Intact, Normal Color, Warm Results - Vital Signs Recent Vital Signs: Last Vital Signs Temp 98.2 F 09/28/17 08:03 Pulse 90 09/28/17 08:03 Resp 20 09/28/17 08:03 BP 126/64 09/28/17 08:03 Pulse Ox 95 09/28/17 08:03 - Labs Labs: Laboratory Results - last 24 hr 09/28/17 08:46 Blood Type A NEGATIVE Antibody Screen Negative Assessment & Plan - Assessment and Plan (Free Text) Plan: 52M with PMHx of HTN, COPD, Asthma, HLD, Anxiety who is s/p left TKR. During extubation he desaturated to 89-90%. Medicine Team consulted for medical management. S/P Left TKR All management as per Ortho Meds: Dilaudid PRN for severe, Morphine PRN for moderate, Colace TID Productive Cough Hx Asthma Hx COPD Labs/ Imaging: F/U CXR PA/Lat F/U Sputum Culture, rapid flu Meds: Duonebs Q6H ROBLES, Q2H PRN Mucomyst Q6H Phenergan PRN Hx HTN Started patient on Norvasc 5mg PO daily Note will be elevated 2/2 pain and IVF Continue to monitor, adjust medications accordingly Hx HLD F/U Lipid Panel, A1C Hx Anxiety Hx of Tobacco Abuse Disorder Smoking cessation encouraged Nicotine Patch Prophylactic Measures GI PPX: 40 mg PO daily DVT PPX: Lovenox 40mg SC daily [facility] PT Tayo Haider Dr., DO, PGY-1 <Armando Thomason - Last Filed: 09/28/17 19:29> Meds - Medications Medications: Current Medications Acetaminophen (Tylenol 325mg Tab) 975 mg PO Q8H [facility]BL[facility] Acetylcysteine (Acetylcysteine 20%) 4 ml INH Q6H [facility]BL[facility] Last Admin: 09/28/17 17:38 Dose: 4 ml Albuterol/Ipratropium (Duoneb 3 Mg/0.5 Mg (3 Ml) Ud) 3 ml INH RQ6 [facility] Albuterol/Ipratropium (Duoneb 3 Mg/0.5 Mg (3 Ml) Ud) 3 ml INH RQ2 PRN PRN Reason: Wheezing Amlodipine Besylate (Norvasc) 5 mg PO DAILY [facility] Docusate Sodium (Colace) 100 mg PO TID [facility] Enoxaparin Sodium (Lovenox) 40 mg SC Q24H [facility] Gabapentin (Neurontin) 800 mg PO TID [facility] Hydromorphone HCl (Dilaudid) 0.5 mg IVP Q4H PRN PRN Reason: Pain, severe (8-10) Sodium Chloride (Sodium Chloride 0.9%) 1,000 mls @ 80 mls/hr IV .[id number] [facility] Last Admin: 09/28/17 18:00 Dose: 160 mls Clindamycin Phosphate 900 mg/ (Sodium Chloride) 106 mls @ 100 mls/hr IVPB Q8H [facility] Stop: 09/29/17 03:04 Last Admin: 09/28/17 18:25 Dose: 106 mls Morphine Sulfate (Morphine) 2 mg IVP Q4 PRN PRN Reason: Pain, moderate (4-7) Nicotine (Nicoderm Cq) 1 patch TD DAILY [facility] Ondansetron HCl (Zofran Inj) 4 mg IVP Q6H PRN PRN Reason: Nausea/Vomiting Pantoprazole Sodium (Protonix Ec Tab) 40 mg PO DAILY [facility] Promethazine HCl (Phenergan Syrup) 12.5 mg PO Q6 PRN PRN Reason: Cough Results - Vital Signs Recent Vital Signs: Last Vital Signs Temp 99.1 F 09/28/17 13:55 Pulse 85 09/28/17 16:30 Resp 14 09/28/17 16:30 BP 144/76 09/28/17 16:30 Pulse Ox 96 09/28/17 16:30 - Labs Labs: Laboratory Results - last 24 hr 09/28/17 08:46 Blood Type A NEGATIVE Antibody Screen Negative Attending/Attestation - Attestation I have personally seen and examined this patient.: Yes I have fully participated in the care of the patient.: Yes I have reviewed all pertinent clinical information: Yes Notes (Text): Medical consult: Patient was seen and examined by me, agree with the above note by resident medical officer. Patient is S/P TKR. From what I am being told the patient does have a history of smoking and asthma. When we saw him in PACU he was awake and alert, answering questions approtiately. He was on room air when we came and saw him and the SpO2 varied between 90% to 92%. He needs to be on supplemental oxygen while he is here - especially given that he will be getting pain medications. There are already orders for inhalers treatmens and I agree with this. Chest XRAY ordered and is pending at the moment. Thank you very much, Armando Thomason
--- NOTE | 2017-09-28 14:48 | RAD ---
PROCEDURE: Left Knee Radiographs. HISTORY: Pain. COMPARISON: None. FINDINGS: BONES: No fracture. Status post recent total knee replacement -femoral and tibial components anatomically low line. Tibial component cemented. Suprapatellar drain in place. Suprapatellar JOINTS: Normal. No osteoarthritis. JOINT EFFUSION: With mottled density consistent with recent postop changes. Anterior skin sutures present OTHER FINDINGS: None. IMPRESSION: Status post recent total knee replacement/ arthroplasty with drain in place
--- NOTE | 2017-09-28 14:55 | PCM.ANESB7 ---
Adductor Canal Block - Adductor Canal Block Date of Procedure: 09/28/17 Anesthiologist: Angélica Pre-Procedure Diagnosis: s/p Left Knee Arthroplasty Post-Procedure Diagnosis: Same Procedure Performed: Adductor Canal Block Left - Procedure Adductor Canal Block: The procedure was explained to the patient that it is for the post-operative pain management. Consent was obtained after a thorough discussion with the patient regarding the benefits and possible complications of local anesthetic adductor canal block of the femoral nerve. PACU monitors were applied to the patient. Time-out was held with the circulating nurse to confirm the appropriate block. After applying supplemental oxygen, the patient was placed in supine position with and the operative leg was flexed slightly at the knee and externally rotated as needed, and was kept anatomically stable. The mid- thigh of the left lower extremity was exposed. The ultrasound transducer was then applied transversely along the medial aspect, about midway down the thigh and the femoral artery and vein were identified in appropriate relation with the sartorius muscle. At this time, the femoral nerve was visualized lateral to the femoral artery within the canal. After thorough identification, this area area was prepped with Chloroprep solution. At this point, a #22 gauge Stimuplex 4-inch needle was inserted in-plane in a [id number] orientation, and advanced toward the femoral nerve. Advancement was performed carefully under direct ultrasound visualization. After negative aspiration, 5cc of 0.25% Bupivacaine was injected and this was followed with 25cc of 0.25% Bupivacaine. Intermittent 5mL injection with negative aspirations. No heme or paresthesia. Under ultrasound guidance the local anesthetics were observed spreading around the femoral nerve. The needle was removed intact and sterile dressing was applied. The patient had stable vital signs, was conscious and in no apparent distress. The patient tolerated the femoral nerve block well with stable vital signs.
[2017-09-28] MEDS ORDERED: Promethazine 12.5 mg/10 ml Syrup PO PRN (16:22)
[2017-09-28] MEDS ORDERED: Acetylcysteine 20% Inhal Soln (4ml) INH SCH (16:30)
[2017-09-28] MEDS: Sodium Chloride 0.9% 1,000 ML IV SCH ×2 (18:00→23:30)
[2017-09-28] MEDS: Albuterol-Ipratrop 3 mg / 0.5 (3 ml) UD INH SCH (23:31)
[2017-09-28] MEDS: Acetylcysteine 20% Inhal Soln (4ml) INH SCH (23:46)
[2017-09-29] MEDS: Albuterol-Ipratrop 3 mg / 0.5 (3 ml) UD INH SCH ×4 (01:05→19:14)
[2017-09-29] MEDS: Acetylcysteine 20% Inhal Soln (4ml) INH SCH ×4 (01:05→19:14)
--- NOTE | 2017-09-29 02:41 | OP ---
PROCEDURE DATE: 09/28/2017 PREOPERATIVE DIAGNOSIS: Left knee arthritis. POSTOPERATIVE DIAGNOSIS: Left knee arthritis. PROCEDURE: Left total knee arthroplasty and removal of hardware. SURGEON: Ridge Falcon MD BRAZER PRODUCTION LINE: James Cardoso PA-C and third year medical student. Ms. Cardoso was scrubbed and present throughout the entire case and assisted in patient manipulation of the leg, retraction, and wound closure. TYPE OF ANESTHESIA: General. COMPLICATIONS: None. ESTIMATED BLOOD LOSS: 125 mL. TOURNIQUET TIME: 87 minutes at 300 mmHg. IMPLANT: Biomet total knee system. INDICATIONS FOR PROCEDURE: This is a 52-year-old gentleman, who presented with complaints of longstanding left knee pain. Patient previously undergone a left knee ACL reconstruction many years ago. Patient subsequently developed increasing pain with activity. Clinical examination is consistent with some joint line tenderness and pain with axial load. Radiographic examination as well as MRI examination consistent with advanced degenerative joint disease. After a period of failed nonsurgical management, recommendation was for a left total knee arthroplasty. The risks and benefits were discussed with the patient and informed consent was obtained. DESCRIPTION OF PROCEDURE: After surgical site was finally verified in the preoperative holding area, patient was taken to the operating room and placed supine on the operating room table. After administration of general anesthesia, patient received 900 mg of clindamycin IV. A Pollard catheter was inserted. Venodyne boot was placed on a nonoperative extremity. Care was taken to make sure that all bony prominences and nerves were well padded and protected, and the left lower extremity was prepped and draped in the usual sterile fashion. The tourniquet was inflated about the left thigh and approximately 11 cm midline longitudinal incision was made. Soft tissue was dissected sharply. After the *------* medial parapatellar arthrotomy was performed and the knee joint was exposed. Anterior fat pad, the medial and lateral menisci as well as the ACL and PCL were all resected. Once the knee joint had been adequately exposed, step drill was used to drill into the medullary of the distal femur. Intramedullary distal femoral cutting block was inserted and pinned into place. A distal femoral resection was performed. Next, a femoral component was sized and a 4-in-1 cut block was placed and anterior and posterior cuts were performed. Next, a box cut was performed on the distal femur and attention was directed to the tibia. Extramedullary tibial cutting guide was pinned into place and a tibial resection was performed. Extension and flexion gaps were checked. Patient was noted to have full flexion and extension with stable varus and valgus stress throughout. At this point, being careful to maintain proper rotation of the medullary canal and the proximal tibia was reamed and punched with a cruciate punch. At this point, with a trial tibia, trial femur and a trial bearing in place, the knee was taken through range of motion and was noted to be stable. Attention was directed to patella, the thickness of the patella was measured and patellar resection was performed. Patellar button was sized and holes for patellar button were then drilled. Trial patella was placed and the knee was taken through a range of motion. Some slight lateral tilt was noted and a limited lateral retinacular release was performed. Once this was done, the knee was taken through a range of motion and was noted to retract normally. At this point, all the trial components were removed and the knee joint was pulse lavaged with antibiotic saline solution. The bony surfaces were dried and actual tibial, femoral, and patellar components were cemented into place. Care was taken to remove all excess cement. Once the cement was hardened, the knee joint was inspected for any debris and was once again irrigated. The actual bearing was then inserted and locked into place with a cross pin. The tourniquet was deflated and any obvious bleeding was cauterized. Medium Hemovac drain was inserted. The arthrotomy was closed using #1 Vicryl suture, subcutaneous tissue was closed using 2-0 Vicryl suture, and the skin was closed using hal. Sterile dressing was applied, and the knee immobilizer was placed. Patient was awakened from the procedure and taken to the recovery room in stable condition. Ridge Falcon MD
[2017-09-29] MEDS: HYDROmorphone 0.5 mg/0.5 ml ISec IVP PRN ×4 (05:40→20:32)
[2017-09-29 07:41] LABS: HEMATOCRIT 41.5 % (35.0-51.0); MEAN CORPUSCULAR HEMOGLOBIN 29.7 pg (27.0-31.0); MEAN CORPUSCULAR HGB CONC 34.6 g/dL (33.0-37.0); MEAN PLATELET VOLUME 7.8 fL (7.2-11.7); RED CELL DISTRIBUTION WIDTH 12.8 % (11.5-14.5); WHITE BLOOD COUNT 14.5 K/uL (4.8-10.8)
[2017-09-29 07:52] LABS: MEAN CELL VOLUME 85.8 fL (80.0-94.0)
[2017-09-29 08:05] LABS: ALKALINE PHOSPHATASE 73 U/L (38-126); ALT/SGPT 34 U/L (21-72); AST/SGOT 16 U/L (17-59); BILIRUBIN,TOTAL 1.2 mg/dL (0.2-1.3); BLOOD UREA NITROGEN 6 mg/dL (9-20); CARBON DIOXIDE 32 mmol/L (22-30); CHLORIDE 99 mmol/L (98-107); CHOLESTEROL 181 mg/dL (0-199); GFR AFRICAN-AMERICAN > 60; GLUCOSE,RANDOM 130 mg/dL (75-110); MAGNESIUM 1.6 mg/dL (1.6-2.3); PHOSPHOROUS 3.3 mg/dL (2.5-4.5); POTASSIUM 4.2 mmol/L (3.6-5.2); SODIUM 137 mmol/L (132-148); TOTAL PROTEIN 6.2 g/dL (6.3-8.3)
[2017-09-29 08:09] LABS: ALB/GLOB RATIO 1.5 (1.0-2.1)
[2017-09-29] MEDS ORDERED: Azithromycin 500 MG in Sodium Chloride 0.9% 250 ML IVPB SCH (10:00)
[2017-09-29] MEDS: Pantoprazole 40 mg EC Tab PO SCH (10:23)
--- NOTE | 2017-09-29 11:25 | CP.PCM.PN ---
<Alessandra Cr - Last Filed: 09/29/17 11:51> Subjective - Date & Time of Evaluation Date of Evaluation: 09/29/17 Time of Evaluation: 09:00 - Subjective Subjective: Medicine Note for Hospitalist Service - Dr. Hermila Thomason Patient was seen and examined at bedside. Patient reports his breathing has improved since yesterday. He admits he is in pain but well controlled with pain medication. Denied fever, chills, headache, chest pain, SOB, abdominal pain, n/v /d/c, or urinary symptoms. Objective - Vital Signs/Intake and Output Vital Signs (last 24 hours): Temp Pulse Resp BP Pulse Ox 98.1 F 96 H 20 139/84 95 09/29/17 08:00 09/29/17 08:00 09/29/17 08:00 09/29/17 08:00 09/29/17 08:00 Intake and Output: 09/29/17 09/29/17 06:59 18:59 Intake Total 740 Output Total 1850 Balance -1110 - Medications Medications: Current Medications Acetaminophen (Tylenol 325mg Tab) 975 mg PO Q8H [facility] Last Admin: 09/29/17 06:28 Dose: 975 mg Acetylcysteine (Acetylcysteine 20%) 4 ml INH RQ6 [facility] Last Admin: 09/29/17 07:10 Dose: 4 ml Albuterol/Ipratropium (Duoneb 3 Mg/0.5 Mg (3 Ml) Ud) 3 ml INH RQ6 [facility] Last Admin: 09/29/17 07:10 Dose: 3 ml Albuterol/Ipratropium (Duoneb 3 Mg/0.5 Mg (3 Ml) Ud) 3 ml INH RQ2 PRN PRN Reason: Wheezing Amlodipine Besylate (Norvasc) 5 mg PO DAILY [facility] Last Admin: 09/29/17 10:12 Dose: 5 mg Docusate Sodium (Colace) 100 mg PO TID [facility] Last Admin: 09/29/17 10:08 Dose: 100 mg Enoxaparin Sodium (Lovenox) 40 mg SC Q24H [facility] Gabapentin (Neurontin) 800 mg PO TID [facility] Last Admin: 09/29/17 10:08 Dose: 800 mg Hydromorphone HCl (Dilaudid) 0.5 mg IVP Q4H PRN PRN Reason: Pain, severe (8-10) Last Admin: 09/29/17 10:05 Dose: 0.5 mg Azithromycin 500 mg/ Sodium (Chloride) 250 mls @ 250 mls/hr IVPB DAILY [facility] Stop: 10/04/17 10:01 Last Admin: 09/29/17 10:15 Dose: 250 mls/hr Morphine Sulfate (Morphine) 2 mg IVP Q4 PRN PRN Reason: Pain, moderate (4-7) Last Admin: 09/29/17 07:01 Dose: 2 mg Nicotine (Nicoderm Cq) 1 patch TD DAILY [facility] Last Admin: 09/29/17 10:23 Dose: 1 patch Ondansetron HCl (Zofran Inj) 4 mg IVP Q6H PRN PRN Reason: Nausea/Vomiting Pantoprazole Sodium (Protonix Ec Tab) 40 mg PO DAILY [facility] Last Admin: 09/29/17 10:23 Dose: 40 mg Promethazine HCl (Phenergan Syrup) 12.5 mg PO Q6 PRN PRN Reason: Cough - Labs Labs: 09/29/17 07:18 09/29/17 07:18 - Additional Findings Additional findings: - Constitutional Appears: No Acute Distress - Head Exam Head Exam: NORMAL INSPECTION, NORMOCEPHALIC - Eye Exam Eye Exam: EOMI, Normal appearance, PERRL Pupil Exam: NORMAL ACCOMODATION - ENT Exam ENT Exam: Mucous Membranes Moist, Normal Exam - Respiratory Exam Respiratory Exam: Decreased Breath Sounds, Wheezes - Cardiovascular Exam Cardiovascular Exam: REGULAR RHYTHM - GI/Abdominal Exam GI & Abdominal Exam: Normal Bowel Sounds, Soft. absent: Distended, Tenderness - Extremities Exam Additional comments: Left knee wrapped s/p nerve block, - Neurological Exam Neurological exam: Alert, CN II-XII Intact, Oriented x3 - Psychiatric Exam Psychiatric exam: Normal Affect, Normal Mood - Skin Skin Exam: Dry, Intact, Normal Color, Warm Assessment and Plan - Assessment and Plan (Free Text) Plan: 52M with PMHx of HTN, COPD, Asthma, HLD, Anxiety who is s/p left TKR. During extubation he desaturated to 89-90%. Medicine Team consulted for medical management. S/P Left TKR All management as per Ortho Meds: Dilaudid PRN for severe, Morphine PRN for moderate, Colace TID Productive Cough Hx Asthma Hx COPD Labs/ Imaging: CXR: no infiltrates noted F/U Sputum Culture, rapid flu Meds: Duonebs Q6H [facility], Q2H PRN Mucomyst Q6H Phenergan PRN Zithromax 500mg PO daily x 5 days Hx HTN Started patient on Norvasc 5mg PO daily Note will be elevated 2/2 pain and IVF Continue to monitor, adjust medications accordingly Hx HLD Lipid Panel, A1C - both WNL Hx Anxiety Hx of Tobacco Abuse Disorder Smoking cessation encouraged Nicotine Patch Prophylactic Measures GI PPX: 40 mg PO daily DVT PPX: Lovenox 40mg SC daily [facility] PT Mirtha DW Dr. Thomason, Tayo PATEL, PGY-1 <Armando Thomason H - Last Filed: 09/29/17 13:06> Objective - Vital Signs/Intake and Output Vital Signs (last 24 hours): Temp Pulse Resp BP Pulse Ox 98.1 F 96 H 20 139/84 95 09/29/17 08:00 09/29/17 08:00 09/29/17 08:00 09/29/17 08:00 09/29/17 08:00 Intake and Output: 09/29/17 09/29/17 06:59 18:59 Intake Total 740 Output Total 1850 Balance -1110 - Medications Medications: Current Medications Acetaminophen (Tylenol 325mg Tab) 975 mg PO Q8H [facility] Last Admin: 09/29/17 06:28 Dose: 975 mg Acetylcysteine (Acetylcysteine 20%) 4 ml INH RQ6 [facility] Last Admin: 09/29/17 07:10 Dose: 4 ml Albuterol/Ipratropium (Duoneb 3 Mg/0.5 Mg (3 Ml) Ud) 3 ml INH RQ6 [facility] Last Admin: 09/29/17 07:10 Dose: 3 ml Albuterol/Ipratropium (Duoneb 3 Mg/0.5 Mg (3 Ml) Ud) 3 ml INH RQ2 PRN PRN Reason: Wheezing Amlodipine Besylate (Norvasc) 5 mg PO DAILY [facility] Last Admin: 09/29/17 10:12 Dose: 5 mg Azithromycin (Zithromax) 500 mg PO DAILY [facility] Stop: 10/04/17 10:01 Docusate Sodium (Colace) 100 mg PO TID [facility] Last Admin: 09/29/17 10:08 Dose: 100 mg Enoxaparin Sodium (Lovenox) 40 mg SC Q24H [facility] Last Admin: 09/29/17 12:17 Dose: 40 mg Gabapentin (Neurontin) 800 mg PO TID [facility] Last Admin: 09/29/17 10:08 Dose: 800 mg Hydromorphone HCl (Dilaudid) 0.5 mg IVP Q4H PRN PRN Reason: Pain, severe (8-10) Last Admin: 09/29/17 10:05 Dose: 0.5 mg Morphine Sulfate (Morphine) 2 mg IVP Q4 PRN PRN Reason: Pain, moderate (4-7) Last Admin: 09/29/17 07:01 Dose: 2 mg Nicotine (Nicoderm Cq) 1 patch TD DAILY [facility] Last Admin: 09/29/17 10:23 Dose: 1 patch Ondansetron HCl (Zofran Inj) 4 mg IVP Q6H PRN PRN Reason: Nausea/Vomiting Pantoprazole Sodium (Protonix Ec Tab) 40 mg PO DAILY [facility] Last Admin: 09/29/17 10:23 Dose: 40 mg Promethazine HCl (Phenergan Syrup) 12.5 mg PO Q6 PRN PRN Reason: Cough - Labs Labs: 09/29/17 07:18 09/29/17 07:18 Attending/Attestation - Attestation I have personally seen and examined this patient.: Yes I have fully participated in the care of the patient.: Yes I have reviewed all pertinent clinical information, including history, physical exam and plan: Yes Notes (Text): 09/29/17 13:06 Medical attending: Patient was seen and examined by me, agree with the above note by medical physics researcher. The patient reported that he did okay overnight. The pain that he has in his knees currently controlled at this time. He had a portable chest film done this morning, it appeared to be stable. He does have some coughing. He is on nebulizer treatments On physical exam he did not have any wheezing. We encouraged the use of supplemental oxygen for the time being. Encouraged stopping smoking as well thank you very much, Armando Thomason
--- NOTE | 2017-09-29 11:49 | RAD ---
HISTORY: low SpO2, history smoking, S/P surgery COMPARISON: No prior. FINDINGS: LUNGS: Mildly low lung volumes with crowded bronchovascular markings and mild bibasilar atelectasis left greater than right with more confluent changes in the left CP angle region. Pleura No significant pleural effusion identified, no pneumothorax apparent. CARDIOVASCULAR: Normal. OSSEOUS STRUCTURES: No significant abnormalities. VISUALIZED UPPER ABDOMEN: Normal. OTHER FINDINGS: None. IMPRESSION: Mildly low lung volumes with crowded bronchovascular markings and mild bibasilar atelectasis left greater than right with more confluent changes in the left CP angle region.
[2017-09-29] MEDS: Enoxaparin 40 mg Syringe SC SCH (12:17)
--- NOTE | 2017-09-29 12:34 | CP.PCM.PN ---
Subjective - Date & Time of Evaluation Date of Evaluation: 09/29/17 Time of Evaluation: 12:31 - Subjective Subjective: Patient states pain is like 8/10 but that he just got the medication and he is better. Denies CP/SOB/dizziness/cough. Smoking cessation advised. Objective - Vital Signs/Intake and Output Vital Signs (last 24 hours): Temp Pulse Resp BP Pulse Ox 98.1 F 96 H 20 139/84 95 09/29/17 08:00 09/29/17 08:00 09/29/17 08:00 09/29/17 08:00 09/29/17 08:00 Intake and Output: 09/29/17 09/29/17 06:59 18:59 Intake Total 740 Output Total 1850 Balance -1110 - Medications Medications: Current Medications Acetaminophen (Tylenol 325mg Tab) 975 mg PO Q8H [facility] Last Admin: 09/29/17 06:28 Dose: 975 mg Acetylcysteine (Acetylcysteine 20%) 4 ml INH RQ6 [facility] Last Admin: 09/29/17 07:10 Dose: 4 ml Albuterol/Ipratropium (Duoneb 3 Mg/0.5 Mg (3 Ml) Ud) 3 ml INH RQ6 [facility] Last Admin: 09/29/17 07:10 Dose: 3 ml Albuterol/Ipratropium (Duoneb 3 Mg/0.5 Mg (3 Ml) Ud) 3 ml INH RQ2 PRN PRN Reason: Wheezing Amlodipine Besylate (Norvasc) 5 mg PO DAILY [facility] Last Admin: 09/29/17 10:12 Dose: 5 mg Azithromycin (Zithromax) 500 mg PO DAILY [facility] Stop: 10/04/17 10:01 Docusate Sodium (Colace) 100 mg PO TID [facility] Last Admin: 09/29/17 10:08 Dose: 100 mg Enoxaparin Sodium (Lovenox) 40 mg SC Q24H [facility] Last Admin: 09/29/17 12:17 Dose: 40 mg Gabapentin (Neurontin) 800 mg PO TID [facility] Last Admin: 09/29/17 10:08 Dose: 800 mg Hydromorphone HCl (Dilaudid) 0.5 mg IVP Q4H PRN PRN Reason: Pain, severe (8-10) Last Admin: 09/29/17 10:05 Dose: 0.5 mg Morphine Sulfate (Morphine) 2 mg IVP Q4 PRN PRN Reason: Pain, moderate (4-7) Last Admin: 09/29/17 07:01 Dose: 2 mg Nicotine (Nicoderm Cq) 1 patch TD DAILY [facility] Last Admin: 09/29/17 10:23 Dose: 1 patch Ondansetron HCl (Zofran Inj) 4 mg IVP Q6H PRN PRN Reason: Nausea/Vomiting Pantoprazole Sodium (Protonix Ec Tab) 40 mg PO DAILY [facility] Last Admin: 09/29/17 10:23 Dose: 40 mg Promethazine HCl (Phenergan Syrup) 12.5 mg PO Q6 PRN PRN Reason: Cough - Labs Labs: 09/29/17 07:18 09/29/17 07:18 - Extremities Exam Additional comments: hemovac 90cc LLE+ROM ankle/toes, sensation intact, on CPM 55, tolerating well. Calves soft NT neg homans +DP/PT pulses Assessment and Plan (1) Primary osteoarthritis of left knee Assessment & Plan: POD#1 s/p left TKR -labs in am d/c planning VTE proph on lovenox PT/OT neb tx medical f/u d/w Dr. Falcon, agrees with above Status: Acute (2) HTN (hypertension) Status: Acute (3) Asthma Status: Acute
[2017-09-30] MEDS: HYDROmorphone 0.5 mg/0.5 ml ISec IVP PRN ×5 (00:33→23:46)
[2017-09-30] MEDS: Albuterol-Ipratrop 3 mg / 0.5 (3 ml) UD INH SCH ×4 (01:16→19:13)
[2017-09-30] MEDS: Acetylcysteine 20% Inhal Soln (4ml) INH SCH ×4 (01:16→19:12)
--- NOTE | 2017-09-30 06:44 | CP.PCM.PN ---
Subjective - Date & Time of Evaluation Date of Evaluation: 09/30/17 Time of Evaluation: 06:30 - Subjective Subjective: Patient states pain is better today. He is complaining of pain in his ankle. Denies CP/SOB/cough/dizziness. Objective - Vital Signs/Intake and Output Vital Signs (last 24 hours): Temp Pulse Resp BP Pulse Ox 98.4 F 110 H 18 132/81 99 09/29/17 23:35 09/29/17 23:35 09/29/17 23:35 09/29/17 23:35 09/29/17 23:35 Intake and Output: 09/29/17 09/30/17 18:59 06:59 Intake Total 1090 1000 Output Total 1350 2690 Balance -260 -1690 - Medications Medications: Current Medications Acetaminophen (Tylenol 325mg Tab) 975 mg PO Q8H [facility] Last Admin: 09/29/17 22:38 Dose: 975 mg Acetylcysteine (Acetylcysteine 20%) 4 ml INH RQ6 [facility] Last Admin: 09/30/17 01:16 Dose: 4 ml Albuterol/Ipratropium (Duoneb 3 Mg/0.5 Mg (3 Ml) Ud) 3 ml INH RQ6 [facility] Last Admin: 09/30/17 01:16 Dose: 3 ml Albuterol/Ipratropium (Duoneb 3 Mg/0.5 Mg (3 Ml) Ud) 3 ml INH RQ2 PRN PRN Reason: Wheezing Amlodipine Besylate (Norvasc) 5 mg PO DAILY [facility] Last Admin: 09/29/17 10:12 Dose: 5 mg Azithromycin (Zithromax) 500 mg PO DAILY [facility] Stop: 10/04/17 10:01 Docusate Sodium (Colace) 100 mg PO TID [facility] Last Admin: 09/29/17 18:48 Dose: 100 mg Enoxaparin Sodium (Lovenox) 40 mg SC Q24H [facility] Last Admin: 09/29/17 12:17 Dose: 40 mg Gabapentin (Neurontin) 800 mg PO TID [facility] Last Admin: 09/29/17 18:48 Dose: 800 mg Hydromorphone HCl (Dilaudid) 0.5 mg IVP Q4H PRN PRN Reason: Pain, severe (8-10) Last Admin: 09/30/17 06:33 Dose: 0.5 mg Morphine Sulfate (Morphine) 2 mg IVP Q4 PRN PRN Reason: Pain, moderate (4-7) Last Admin: 09/30/17 02:33 Dose: 2 mg Nicotine (Nicoderm Cq) 1 patch TD DAILY [facility] Last Admin: 09/29/17 10:23 Dose: 1 patch Ondansetron HCl (Zofran Inj) 4 mg IVP Q6H PRN PRN Reason: Nausea/Vomiting Pantoprazole Sodium (Protonix Ec Tab) 40 mg PO DAILY [facility] Last Admin: 09/29/17 10:23 Dose: 40 mg Promethazine HCl (Phenergan Syrup) 12.5 mg PO Q6 PRN PRN Reason: Cough - Labs Labs: 09/29/17 07:18 09/29/17 07:18 - Extremities Exam Additional comments: hemovac pulled, dressing changed. +ROM ankle/toes, sensation intact calves soft NT neg homans +DP/PT pulses ankle pain is at indentation from sock. Sock removed, will reeeval. mild expected swelling only Assessment and Plan (1) Primary osteoarthritis of left knee Assessment & Plan: POD#2 s/p left TKR f/u labs pt/ot cpm VTE proph d/c planning d/w Dr. Falcon, agrees with above Status: Acute (2) HTN (hypertension) Status: Chronic (3) Asthma Status: Chronic
--- NOTE | 2017-09-30 07:16 | CP.PCM.PN ---
<Alessandra Cr - Last Filed: 09/30/17 10:05> Subjective - Date & Time of Evaluation Date of Evaluation: 09/30/17 Time of Evaluation: 07:00 - Subjective Subjective: Medicine Note for Hospitalist Service - Dr. Hermila Thomason Patient was seen and examined at bedside. No acute complaints. Breathing has much improved. Admits to left knee pain but the pain is well controlled on pain medication. Denied fever, chills, headache, chest pain, SOB, abdominal pain, n/v /d/c, or urinary symptoms. Objective - Vital Signs/Intake and Output Vital Signs (last 24 hours): Temp Pulse Resp BP Pulse Ox 98.4 F 110 H 18 132/81 99 09/29/17 23:35 09/29/17 23:35 09/29/17 23:35 09/29/17 23:35 09/29/17 23:35 Intake and Output: 09/30/17 09/30/17 06:59 18:59 Intake Total 1000 360 Output Total 2690 Balance -1690 360 - Medications Medications: Current Medications Acetaminophen (Tylenol 325mg Tab) 975 mg PO Q8H [facility] Last Admin: 09/30/17 06:41 Dose: 975 mg Acetylcysteine (Acetylcysteine 20%) 4 ml INH RQ6 [facility] Last Admin: 09/30/17 01:16 Dose: 4 ml Albuterol/Ipratropium (Duoneb 3 Mg/0.5 Mg (3 Ml) Ud) 3 ml INH RQ6 [facility] Last Admin: 09/30/17 01:16 Dose: 3 ml Albuterol/Ipratropium (Duoneb 3 Mg/0.5 Mg (3 Ml) Ud) 3 ml INH RQ2 PRN PRN Reason: Wheezing Amlodipine Besylate (Norvasc) 5 mg PO DAILY [facility] Last Admin: 09/29/17 10:12 Dose: 5 mg Azithromycin (Zithromax) 500 mg PO DAILY [facility] Stop: 10/04/17 10:01 Docusate Sodium (Colace) 100 mg PO TID [facility] Last Admin: 09/29/17 18:48 Dose: 100 mg Enoxaparin Sodium (Lovenox) 40 mg SC Q24H [facility] Last Admin: 09/29/17 12:17 Dose: 40 mg Gabapentin (Neurontin) 800 mg PO TID [facility] Last Admin: 09/29/17 18:48 Dose: 800 mg Hydromorphone HCl (Dilaudid) 0.5 mg IVP Q4H PRN PRN Reason: Pain, severe (8-10) Last Admin: 09/30/17 06:33 Dose: 0.5 mg Morphine Sulfate (Morphine) 2 mg IVP Q4 PRN PRN Reason: Pain, moderate (4-7) Last Admin: 09/30/17 02:33 Dose: 2 mg Nicotine (Nicoderm Cq) 1 patch TD DAILY [facility] Last Admin: 09/29/17 10:23 Dose: 1 patch Ondansetron HCl (Zofran Inj) 4 mg IVP Q6H PRN PRN Reason: Nausea/Vomiting Pantoprazole Sodium (Protonix Ec Tab) 40 mg PO DAILY [facility] Last Admin: 09/29/17 10:23 Dose: 40 mg Promethazine HCl (Phenergan Syrup) 12.5 mg PO Q6 PRN PRN Reason: Cough - Labs Labs: 09/29/17 07:18 09/29/17 07:18 - Additional Findings Additional findings: - Constitutional Appears: No Acute Distress - Head Exam Head Exam: NORMAL INSPECTION, NORMOCEPHALIC - Eye Exam Eye Exam: EOMI, Normal appearance, PERRL Pupil Exam: NORMAL ACCOMODATION - ENT Exam ENT Exam: Mucous Membranes Moist, Normal Exam - Respiratory Exam Respiratory Exam: Decreased Breath Sounds, Wheezes - Cardiovascular Exam Cardiovascular Exam: REGULAR RHYTHM - GI/Abdominal Exam GI & Abdominal Exam: Normal Bowel Sounds, Soft. absent: Distended, Tenderness - Extremities Exam Additional comments: Left knee wrapped s/p nerve block, - Neurological Exam Neurological exam: Alert, CN II-XII Intact, Oriented x3 - Psychiatric Exam Psychiatric exam: Normal Affect, Normal Mood - Skin Skin Exam: Dry, Intact, Normal Color, Warm Assessment and Plan - Assessment and Plan (Free Text) Plan: 52M with PMHx of HTN, COPD, Asthma, HLD, Anxiety who is s/p left TKR. During extubation he desaturated to 89-90%. Medicine Team consulted for medical management. S/P Left TKR All management as per Ortho Meds: Dilaudid PRN for severe, Morphine PRN for moderate, Colace TID Productive Cough Hx Asthma Hx COPD Labs/ Imaging: CXR: Mildly low lung volumes with crowded bronchovascular markings and mild bibasilar atelectasis left greater than right with more confluent changes in the left CP angle region. Sputum Culture, rapid flu - negative Meds: Duonebs Q6H [facility], Q2H PRN Mucomyst Q6H Phenergan PRN Zithromax 500mg PO daily x 5 days last dose 10/04/17 Hx HTN Started patient on Norvasc 5mg PO daily Note will be elevated 2/2 pain and IVF Continue to monitor, adjust medications accordingly Hx HLD Lipid Panel, A1C - both WNL Hx Anxiety Hx of Tobacco Abuse Disorder Smoking cessation encouraged Nicotine Patch Prophylactic Measures GI PPX: 40 mg PO daily DVT PPX: Lovenox 40mg SC daily [facility] PT Eval - TCU Disposition: MEDICINE TEAM will be signing off of this patient. Please continue breathing treatments, zithromax for today 5 days last dose 10/04/17, and smoking cessation. Patient is to follow up with PMD and a powersaw supervisor. Thank for you for this consult. Please reconsult if necessary. DW Dr. Thomason, Tayo PATEL, PGY-1 <Armando Thomason H - Last Filed: 09/30/17 11:40> Objective - Vital Signs/Intake and Output Vital Signs (last 24 hours): Temp Pulse Resp BP Pulse Ox 98.3 F 106 H 20 137/94 H 96 09/30/17 07:49 09/30/17 07:49 09/30/17 07:49 09/30/17 07:49 09/30/17 07:49 Intake and Output: 09/30/17 09/30/17 06:59 18:59 Intake Total 1000 360 Output Total 2690 Balance -1690 360 - Medications Medications: Current Medications Acetaminophen (Tylenol 325mg Tab) 975 mg PO Q8H [facility] Last Admin: 09/30/17 06:41 Dose: 975 mg Acetylcysteine (Acetylcysteine 20%) 4 ml INH RQ6 [facility] Last Admin: 09/30/17 07:35 Dose: 4 ml Albuterol/Ipratropium (Duoneb 3 Mg/0.5 Mg (3 Ml) Ud) 3 ml INH RQ6 [facility] Last Admin: 09/30/17 07:35 Dose: 3 ml Albuterol/Ipratropium (Duoneb 3 Mg/0.5 Mg (3 Ml) Ud) 3 ml INH RQ2 PRN PRN Reason: Wheezing Amlodipine Besylate (Norvasc) 5 mg PO DAILY [facility] Last Admin: 09/30/17 09:38 Dose: 5 mg Azithromycin (Zithromax) 500 mg PO DAILY [facility] Stop: 10/04/17 10:01 Last Admin: 09/30/17 09:38 Dose: 500 mg Docusate Sodium (Colace) 100 mg PO TID [facility] Last Admin: 09/30/17 09:39 Dose: 100 mg Enoxaparin Sodium (Lovenox) 40 mg SC Q24H [facility] Last Admin: 09/29/17 12:17 Dose: 40 mg Gabapentin (Neurontin) 800 mg PO TID [facility] Last Admin: 09/30/17 09:39 Dose: 800 mg Hydromorphone HCl (Dilaudid) 0.5 mg IVP Q4H PRN PRN Reason: Pain, severe (8-10) Last Admin: 09/30/17 11:00 Dose: 0.5 mg Morphine Sulfate (Morphine) 2 mg IVP Q4 PRN PRN Reason: Pain, moderate (4-7) Last Admin: 09/30/17 02:33 Dose: 2 mg Nicotine (Nicoderm Cq) 1 patch TD DAILY [facility] Last Admin: 09/30/17 09:40 Dose: 1 patch Ondansetron HCl (Zofran Inj) 4 mg IVP Q6H PRN PRN Reason: Nausea/Vomiting Pantoprazole Sodium (Protonix Ec Tab) 40 mg PO DAILY [facility] Last Admin: 09/30/17 09:38 Dose: 40 mg Promethazine HCl (Phenergan Syrup) 12.5 mg PO Q6 PRN PRN Reason: Cough - Labs Labs: 09/30/17 07:20 09/30/17 07:20 Attending/Attestation - Attestation I have personally seen and examined this patient.: Yes I have fully participated in the care of the patient.: Yes I have reviewed all pertinent clinical information, including history, physical exam and plan: Yes Notes (Text): 09/30/17 11:40 Medical consult: I reviewed the above note by the medical coordinator pesticide use, I also came and examined the patient with the resident and agree with the above. When we saw the patient he was asleep but he woke up readily and explained that he was doing quite well. He reported that the pain medication is helping him significantly. He does not report being short of breath. His blood pressure and heart rate has been stable at this time. He is using the incentive spirometry, and his SPO2 has been stable overnight. He is also afebrile as well White blood cell count was 15, this is slightly up from 14 yesterday. This may be from status post surgery. Nevertheless patient is still on antibiotics at this moment. thank you Armando Thomason
[2017-09-30 07:40] LABS: BASO # 0.1 K/uL (0.0-0.2); BASO % 0.4 % (0.0-2.0); EOS # 0.2 K/uL (0.0-0.7); EOS % 1.4 % (0.0-4.0); HEMATOCRIT 38.7 % (35.0-51.0); LYMPH # 1.6 K/uL (1.0-4.3); LYMPH % 10.3 % (20.0-40.0); MEAN CELL VOLUME 85.4 fL (80.0-94.0); MEAN CORPUSCULAR HEMOGLOBIN 28.8 pg (27.0-31.0); MEAN CORPUSCULAR HGB CONC 33.8 g/dL (33.0-37.0); MEAN PLATELET VOLUME 7.9 fL (7.2-11.7); MONO # 1.7 K/uL (0.0-0.8); NRBC % 0.1 % (0.0-2.0); RED CELL DISTRIBUTION WIDTH 13.1 % (11.5-14.5); WHITE BLOOD COUNT 15.1 K/uL (4.8-10.8)
[2017-09-30 08:10] LABS: ALB/GLOB RATIO 1.4 (1.0-2.1); ALKALINE PHOSPHATASE 79 U/L (38-126); ALT/SGPT 36 U/L (21-72); AST/SGOT 18 U/L (17-59); BILIRUBIN,TOTAL 1.4 mg/dL (0.2-1.3); BLOOD UREA NITROGEN 6 mg/dL (9-20); CARBON DIOXIDE 29 mmol/L (22-30); CHLORIDE 99 mmol/L (98-107); GFR AFRICAN-AMERICAN > 60; GLUCOSE,RANDOM 147 mg/dL (75-110); MAGNESIUM 1.8 mg/dL (1.6-2.3); POTASSIUM 3.9 mmol/L (3.6-5.2); SODIUM 134 mmol/L (132-148); TOTAL PROTEIN 6.5 g/dL (6.3-8.3)
[2017-09-30] MEDS: Pantoprazole 40 mg EC Tab PO SCH (09:38)
[2017-09-30] MEDS: Enoxaparin 40 mg Syringe SC SCH (12:59)
[2017-09-30] MEDS ORDERED: Ergocalciferol 50,000 Intl Units Cap PO SCH (14:00)
--- NOTE | 2017-09-30 16:01 | RAD ---
HISTORY: leukocytosis COMPARISON: 09/29/2017 at 0748 hours TECHNIQUE: Chest PA and lateral FINDINGS: LUNGS: No significant appearing consolidation. . Linear discoid atelectasis possible left lung base. Prior opacity here less conspicuous now PLEURA: No significant pleural effusion identified. No pneumothorax apparent. CARDIOVASCULAR: Normal. OSSEOUS STRUCTURES: Widened right acromioclavicular joint and chronicity unknown. Left acromioclavicular joint included on this current study- prior study appearance within normal limits VISUALIZED UPPER ABDOMEN: Normal. OTHER FINDINGS: None. IMPRESSION: No consolidative infiltrate. Discoid atelectasis (versus trace linear fibrosis) -latter left lung base l-less conspicuous now Widened right acromioclavicular joint and chronicity unknown. Correlation with any known prior trauma here. No superior inferior offset suggested
[2017-10-01] MEDS: Acetylcysteine 20% Inhal Soln (4ml) INH SCH ×4 (01:32→19:39)
[2017-10-01] MEDS: Albuterol-Ipratrop 3 mg / 0.5 (3 ml) UD INH SCH ×4 (01:32→19:39)
[2017-10-01] MEDS: HYDROmorphone 0.5 mg/0.5 ml ISec IVP PRN ×4 (03:27→20:31)
[2017-10-01 07:56] LABS: BASO # 0.1 K/uL (0.0-0.2); BASO % 0.5 % (0.0-2.0); EOS # 0.6 K/uL (0.0-0.7); EOS % 3.4 % (0.0-4.0); HEMATOCRIT 38.4 % (35.0-51.0); LYMPH # 2.3 K/uL (1.0-4.3); MEAN CELL VOLUME 85.4 fL (80.0-94.0); MEAN CORPUSCULAR HEMOGLOBIN 29.1 pg (27.0-31.0); MEAN PLATELET VOLUME 7.7 fL (7.2-11.7); MONO % 10.9 % (0.0-10.0); WHITE BLOOD COUNT 17.9 K/uL (4.8-10.8)
[2017-10-01 08:05] LABS: ALB/GLOB RATIO 1.3 (1.0-2.1); ALKALINE PHOSPHATASE 90 U/L (38-126); ALT/SGPT 40 U/L (21-72); AST/SGOT 18 U/L (17-59); BILIRUBIN,TOTAL 1.3 mg/dL (0.2-1.3); BLOOD UREA NITROGEN 7 mg/dL (9-20); CALCIUM 8.3 mg/dl (8.6-10.4); CARBON DIOXIDE 30 mmol/L (22-30); CHLORIDE 98 mmol/L (98-107); GFR AFRICAN-AMERICAN > 60; GLUCOSE,RANDOM 116 mg/dL (75-110); MAGNESIUM 1.9 mg/dL (1.6-2.3); PHOSPHOROUS 3.5 mg/dL (2.5-4.5); POTASSIUM 3.7 mmol/L (3.6-5.2); SODIUM 134 mmol/L (132-148); TOTAL PROTEIN 6.8 g/dL (6.3-8.3)
--- NOTE | 2017-10-01 09:06 | CP.PCM.PN ---
<Alessandra Cr - Last Filed: 10/01/17 15:26> Subjective - Date & Time of Evaluation Date of Evaluation: 10/01/17 Time of Evaluation: 10:00 - Subjective Subjective: Medicine Note for Hospitalist Service - Dr. Hermila Thomason Patient was seen and examined at bedside. No acute complaints. Breathing has much improved. Admits to left knee pain but the pain is well controlled on pain medication. Denied fever, chills, headache, chest pain, SOB, abdominal pain, n/v /d/c, or urinary symptoms. Objective - Vital Signs/Intake and Output Vital Signs (last 24 hours): Temp Pulse Resp BP Pulse Ox 98.1 F 105 H 20 150/91 H 95 10/01/17 08:25 10/01/17 08:25 10/01/17 08:25 10/01/17 08:25 10/01/17 08:25 Intake and Output: 10/01/17 10/01/17 06:59 18:59 Output Total 300 Balance -300 - Medications Medications: Current Medications Acetaminophen (Tylenol 325mg Tab) 975 mg PO Q8H [facility] Last Admin: 10/01/17 05:42 Dose: 975 mg Acetylcysteine (Acetylcysteine 20%) 4 ml INH RQ6 [facility] Last Admin: 10/01/17 07:11 Dose: 4 ml Albuterol/Ipratropium (Duoneb 3 Mg/0.5 Mg (3 Ml) Ud) 3 ml INH RQ6 [facility] Last Admin: 10/01/17 07:11 Dose: 3 ml Albuterol/Ipratropium (Duoneb 3 Mg/0.5 Mg (3 Ml) Ud) 3 ml INH RQ2 PRN PRN Reason: Wheezing Amlodipine Besylate (Norvasc) 5 mg PO DAILY [facility] Last Admin: 09/30/17 09:38 Dose: 5 mg Azithromycin (Zithromax) 500 mg PO DAILY [facility] Stop: 10/04/17 10:01 Last Admin: 09/30/17 09:38 Dose: 500 mg Docusate Sodium (Colace) 100 mg PO TID [facility] [place] Last Admin: 09/30/17 17:14 Dose: 100 mg Enoxaparin Sodium (Lovenox) 40 mg SC Q24H [facility] Last Admin: 09/30/17 12:59 Dose: 40 mg Ergocalciferol (Drisdol 50,000 Intl Units Cap) 1 cap PO Q7D [facility] Last Admin: 09/30/17 15:40 Dose: 1 cap Gabapentin (Neurontin) 800 mg PO TID [facility] Last Admin: 09/30/17 17:14 Dose: 800 mg Hydromorphone HCl (Dilaudid) 0.5 mg IVP Q4H PRN PRN Reason: Pain, severe (8-10) Last Admin: 10/01/17 03:27 Dose: 0.5 mg Morphine Sulfate (Morphine) 2 mg IVP Q4 PRN PRN Reason: Pain, moderate (4-7) Last Admin: 10/01/17 05:41 Dose: 2 mg Nicotine (Nicoderm Cq) 1 patch TD DAILY [facility] Last Admin: 09/30/17 09:40 Dose: 1 patch Ondansetron HCl (Zofran Inj) 4 mg IVP Q6H PRN PRN Reason: Nausea/Vomiting Pantoprazole Sodium (Protonix Ec Tab) 40 mg PO DAILY [facility] Last Admin: 09/30/17 09:38 Dose: 40 mg Promethazine HCl (Phenergan Syrup) 12.5 mg PO Q6 PRN PRN Reason: Cough - Labs Labs: 10/01/17 07:39 10/01/17 07:39 - Additional Findings Additional findings: - Constitutional Appears: No Acute Distress - Head Exam Head Exam: NORMAL INSPECTION, NORMOCEPHALIC - Eye Exam Eye Exam: EOMI, Normal appearance, PERRL Pupil Exam: NORMAL ACCOMODATION - ENT Exam ENT Exam: Mucous Membranes Moist, Normal Exam - Respiratory Exam Respiratory Exam: Decreased Breath Sounds, Wheezes - Cardiovascular Exam Cardiovascular Exam: REGULAR RHYTHM - GI/Abdominal Exam GI & Abdominal Exam: Normal Bowel Sounds, Soft. absent: Distended, Tenderness - Extremities Exam Additional comments: Left knee: incision intact, no erythema, dry. Left ankle mild swelling, but appears dependant as foot below knee. Full ROM ankle/toes sensatio nitact +DP/ PT pulses, TTP to anterior ankle. no erythema. calves soft NT neg homans - Neurological Exam Neurological exam: Alert, CN II-XII Intact, Oriented x3 - Psychiatric Exam Psychiatric exam: Normal Affect, Normal Mood - Skin Skin Exam: Dry, Intact, Normal Color, Warm Assessment and Plan - Assessment and Plan (Free Text) Plan: 52M with PMHx of HTN, COPD, Asthma, HLD, Anxiety who is s/p left TKR. During extubation he desaturated to 89-90%. Medicine Team consulted for medical management. Leukocytosis F/U UA, UC, C. Diff, Pro-keegan Meds: Vancomycin 1 gram Q12, f/u vanco trough 10/02 before night time dose S/P Left TKR All management as per Ortho Meds: Dilaudid PRN for severe, Morphine PRN for moderate, Colace TID Productive Cough Hx Asthma Hx COPD Labs/ Imaging: CXR: Mildly low lung volumes with crowded bronchovascular markings and mild bibasilar atelectasis left greater than right with more confluent changes in the left CP angle region. Sputum Culture, rapid flu - negative Meds: Duonebs Q6H [facility], Q2H PRN Mucomyst Q6H Phenergan PRN Hx HTN Started patient on Norvasc 5mg PO daily Note will be elevated 2/2 pain and IVF Continue to monitor, adjust medications accordingly Hx HLD Lipid Panel, A1C - both WNL Hx of Tobacco Abuse Disorder Smoking cessation encouraged Nicotine Patch Hx Anxiety Prophylactic Measures GI PPX: 40 mg PO daily DVT PPX: Lovenox 40mg SC daily [facility] PT Eval - TCU DW Dr. Thomason, Tayo PATEL, PGY-1 <Armando Thomason - Last Filed: 10/01/17 17:36> Objective - Vital Signs/Intake and Output Vital Signs (last 24 hours): Temp Pulse Resp BP Pulse Ox 98.0 F 100 H 18 133/84 100 10/01/17 16:00 10/01/17 16:00 10/01/17 16:00 10/01/17 16:00 10/01/17 16:00 Intake and Output: 10/01/17 10/01/17 06:59 18:59 Output Total 300 Balance -300 - Medications Medications: Current Medications Acetaminophen (Tylenol 325mg Tab) 975 mg PO Q8H [facility] [place] Last Admin: 10/01/17 05:42 Dose: 975 mg Acetylcysteine (Acetylcysteine 20%) 4 ml INH RQ6 [facility] Last Admin: 10/01/17 13:48 Dose: 4 ml Albuterol/Ipratropium (Duoneb 3 Mg/0.5 Mg (3 Ml) Ud) 3 ml INH RQ6 [facility] [place] Last Admin: 10/01/17 13:48 Dose: 3 ml Albuterol/Ipratropium (Duoneb 3 Mg/0.5 Mg (3 Ml) Ud) 3 ml INH RQ2 PRN PRN Reason: Wheezing Amlodipine Besylate (Norvasc) 5 mg PO DAILY [facility] [place] Last Admin: 10/01/17 09:44 Dose: 5 mg Docusate Sodium (Colace) 100 mg PO TID [facility] [place] Last Admin: 10/01/17 14:09 Dose: 100 mg Enoxaparin Sodium (Lovenox) 40 mg SC Q24H [facility] Last Admin: 10/01/17 12:26 Dose: 40 mg Ergocalciferol (Drisdol 50,000 Intl Units Cap) 1 cap PO Q7D [facility] Last Admin: 09/30/17 15:40 Dose: 1 cap Gabapentin (Neurontin) 800 mg PO TID [facility] Last Admin: 10/01/17 14:09 Dose: 800 mg Hydromorphone HCl (Dilaudid) 0.5 mg IVP Q4H PRN PRN Reason: Pain, severe (8-10) Last Admin: 10/01/17 16:35 Dose: 0.5 mg Vancomycin/Sodium Chloride (Vancomycin 1 Gm/Ns 200 Ml) 1 gm in 200 mls @ 133 mls/hr IVPB Q12H [facility] [place] Stop: 10/06/17 10:01 Morphine Sulfate (Morphine) 2 mg IVP Q4 PRN PRN Reason: Pain, moderate (4-7) Last Admin: 10/01/17 14:01 Dose: 2 mg Nicotine (Nicoderm Cq) 1 patch TD DAILY [facility] [place] Last Admin: 10/01/17 13:55 Dose: 1 patch Ondansetron HCl (Zofran Inj) 4 mg IVP Q6H PRN PRN Reason: Nausea/Vomiting Pantoprazole Sodium (Protonix Ec Tab) 40 mg PO DAILY [facility] Last Admin: 10/01/17 09:44 Dose: 40 mg Promethazine HCl (Phenergan Syrup) 12.5 mg PO Q6 PRN PRN Reason: Cough - Labs Labs: 10/01/17 07:39 10/01/17 07:39 Attending/Attestation - Attestation I have personally seen and examined this patient.: Yes I have fully participated in the care of the patient.: Yes I have reviewed all pertinent clinical information, including history, physical exam and plan: Yes Notes (Text): 10/01/17 17:36 Medical consult: Patient was seen and examined by me, agrees the above note by medical doctor md/medical director. The patient's white blood cell count increased to 17. We came and saw the patient, he was not under any acute distress. He denied having any fevers or chills. He denied having shortness of breath. He also denied having abdominal pain. And also denied having diarrhea. He remains afebrile at this time his blood pressure and heart rate steady he is using the incentive spirometer. Because the white blood cell count 17 will check check blood cultures and pro- calcitonin. Also start vancomycin as well. We will also order a stool studies including C. difficile. Thank you very much, Armando Thomason
[2017-10-01] MEDS: Pantoprazole 40 mg EC Tab PO SCH (09:44)
--- NOTE | 2017-10-01 10:06 | CP.PCM.PN ---
Subjective - Date & Time of Evaluation Date of Evaluation: 10/01/17 Time of Evaluation: 10:03 - Subjective Subjective: Pt complaining of continued left ankle pain, not improved. Denies CP/SOB/ dizziness Objective - Vital Signs/Intake and Output Vital Signs (last 24 hours): Temp Pulse Resp BP Pulse Ox 98.1 F 105 H 20 150/91 H 95 10/01/17 08:25 10/01/17 08:25 10/01/17 08:25 10/01/17 08:25 10/01/17 08:25 Intake and Output: 10/01/17 10/01/17 06:59 18:59 Output Total 300 Balance -300 - Medications Medications: Current Medications Acetaminophen (Tylenol 325mg Tab) 975 mg PO Q8H [facility] Last Admin: 10/01/17 05:42 Dose: 975 mg Acetylcysteine (Acetylcysteine 20%) 4 ml INH RQ6 [facility] Last Admin: 10/01/17 07:11 Dose: 4 ml Albuterol/Ipratropium (Duoneb 3 Mg/0.5 Mg (3 Ml) Ud) 3 ml INH RQ6 [facility] Last Admin: 10/01/17 07:11 Dose: 3 ml Albuterol/Ipratropium (Duoneb 3 Mg/0.5 Mg (3 Ml) Ud) 3 ml INH RQ2 PRN PRN Reason: Wheezing Amlodipine Besylate (Norvasc) 5 mg PO DAILY [facility] Last Admin: 10/01/17 09:44 Dose: 5 mg Docusate Sodium (Colace) 100 mg PO TID [facility] Last Admin: 10/01/17 09:44 Dose: 100 mg Enoxaparin Sodium (Lovenox) 40 mg SC Q24H [facility] Last Admin: 09/30/17 12:59 Dose: 40 mg Ergocalciferol (Drisdol 50,000 Intl Units Cap) 1 cap PO Q7D [facility] Last Admin: 09/30/17 15:40 Dose: 1 cap Gabapentin (Neurontin) 800 mg PO TID [facility] Last Admin: 09/30/17 17:14 Dose: 800 mg Hydromorphone HCl (Dilaudid) 0.5 mg IVP Q4H PRN PRN Reason: Pain, severe (8-10) Last Admin: 10/01/17 03:27 Dose: 0.5 mg Vancomycin/Sodium Chloride (Vancomycin 1 Gm/Ns 200 Ml) 1 gm in 200 mls @ 133 mls/hr IVPB Q12H [facility] Stop: 10/06/17 10:01 Morphine Sulfate (Morphine) 2 mg IVP Q4 PRN PRN Reason: Pain, moderate (4-7) Last Admin: 10/01/17 09:42 Dose: 2 mg Nicotine (Nicoderm Cq) 1 patch TD DAILY [facility] Last Admin: 09/30/17 09:40 Dose: 1 patch Ondansetron HCl (Zofran Inj) 4 mg IVP Q6H PRN PRN Reason: Nausea/Vomiting Pantoprazole Sodium (Protonix Ec Tab) 40 mg PO DAILY [facility] Last Admin: 10/01/17 09:44 Dose: 40 mg Promethazine HCl (Phenergan Syrup) 12.5 mg PO Q6 PRN PRN Reason: Cough - Labs Labs: 10/01/17 07:39 10/01/17 07:39 - Extremities Exam Additional comments: Left knee: incision intact, no erythema, dry. Left ankle mild swelling, but appears dependant as foot below knee. Full ROM ankle/toes sensatio nitact +DP/ PT pulses, TTP to anterior ankle. no erythema. calves soft NT neg homans Assessment and Plan (1) Primary osteoarthritis of left knee Assessment & Plan: wbc 17 u/a ordered, medicine ordere ucx and blood cx as well added vanco CXR improving doppler r/o dvt ankle xrays foot of bed hitched, ankle elevated d/w Dr. Faclon, agrees with above addendum: ankle xrays 3 views ap/lat/oblique reviewed. No obvious fracture or dislocation appreciated. Normal radiographs. Reviewed with Dr. Falcon, agrees dopplers negative for DVT BLE f/u urinalysis Status: Acute (2) HTN (hypertension) Status: Chronic (3) Asthma Status: Chronic
--- NOTE | 2017-10-01 10:19 | RAD ---
PROCEDURE: Left ankle dated 10/01/2017 HISTORY: ankle pain COMPARISON: None FINDINGS: BONES: No evidence of acute displaced fracture nor dislocation. Talar dome intact. . There appears to be very tiny posterior calcaneal enthesophyte. JOINTS: Mild degenerative osteoarthritis the tibiotalar and fibulotalar articulation. SOFT TISSUES: No significant soft tissue swelling. Minor vascular calcifications. OTHER FINDINGS: None. IMPRESSION: No evidence of acute displaced fracture nor dislocation. Mild DJD.
[2017-10-01] MEDS ORDERED: Piperacillin/Tazobact 3.375 GM in Sodium Chloride 100 ML IVPB SCH (11:00)
[2017-10-01] MEDS ORDERED: Bisacodyl 5mg EC Tab PO ONE (11:00)
--- NOTE | 2017-10-01 11:22 | VASCLAB ---
PROCEDURE: Lower Extremity Venous Duplex Exam. HISTORY: leg swelling, r/o DVT PRIORS: None. TECHNIQUE: Bilateral common femoral, femoral, popliteal and posterior tibial, peroneal and great saphenous veins were evaluated. Flow was assessed with color Doppler, compressibility, assessment of phasic flow and augmentation response. Report prepared by Tong Mckinney, SVEN, RVT FINDINGS: RIGHT: 1. Common Femoral Vein: 1.1. Compressibility - Fully compressible: Thrombus - None : Flow - Phasic: Augmentation -Normal: Reflux - None. 2. Femoral Vein: 2.1. Compressibility - Fully compressible: Thrombus - None : Flow - Phasic: Augmentation -Normal: Reflux - None. 3. Popliteal Vein: 3.1. Compressibility - Fully compressible: Thrombus - None : Flow - Phasic: Augmentation -Normal: Reflux - None. 4. Posterior Tibial Vein: 4.1. Compressibility - Fully compressible: Thrombus - None: Flow - Phasic: Augmentation -Normal: Reflux - None. 5. Peroneal Vein: 5.1. Compressibility - Fully compressible: Thrombus - None: Flow - Phasic: Augmentation -Normal: Reflux - None. 6. Great Saphenous Vein: 6.1. Compressibility - Fully compressible: Thrombus - None: Flow - Phasic: Augmentation - Normal: Reflux - None. LEFT: 1. Common Femoral Vein: 1.1. Compressibility - Fully compressible: Thrombus - None: Flow - Phasic: Augmentation -Normal: Reflux - None. 2. Femoral Vein: 2.1. Compressibility - Fully compressible: Thrombus - None: Flow - Phasic: Augmentation -Normal: Reflux - None. 3. Popliteal Vein: 3.1. Compressibility - Fully compressible: Thrombus - None : Flow - Phasic: Augmentation -Normal: Reflux - None. 4. Posterior Tibial Vein: 4.1. Compressibility - Fully compressible: Thrombus - None: Flow - Phasic: Augmentation -Normal: Reflux - None. 5. Peroneal Vein: 5.1. Compressibility - Fully compressible: Thrombus - None: Flow - Phasic: Augmentation -Normal: Reflux - None. 6. Great Saphenous Vein: 6.1. Compressibility - Fully compressible: Thrombus - None: Flow - Phasic: Augmentation - Normal: Reflux - None. OTHER FINDINGS: Right: None significant. Left: None significant. IMPRESSION: Right: No evidence of deep or superficial vein thrombosis of the right lower extremity. Normal valve function noted of the right side. Left: No evidence of deep or superficial vein thrombosis of the left lower extremity. Normal valve function noted of the left side.
--- NOTE | 2017-10-01 11:43 | CP.PCM.PN ---
Subjective - Date & Time of Evaluation Date of Evaluation: 10/01/17 Time of Evaluation: 11:36 - Subjective Subjective: Pt complaining of left ankle pain. L knee: incision clean and dry thigh soft, NT NVI distally ankle with mild swelling anterior tenderness to palpation no lateral or medial tenderness Achilles intact palpable pedal pulses LE doppler negative L ankle xrays no acute abnormalities WBC 17 POD#3 Pt started on vanco ice, elevation cont PT d/c planning Objective - Vital Signs/Intake and Output Vital Signs (last 24 hours): Temp Pulse Resp BP Pulse Ox 98.1 F 105 H 20 150/91 H 95 10/01/17 08:25 10/01/17 08:25 10/01/17 08:25 10/01/17 08:25 10/01/17 08:25 Intake and Output: 10/01/17 10/01/17 06:59 18:59 Output Total 300 Balance -300 - Medications Medications: Current Medications Acetaminophen (Tylenol 325mg Tab) 975 mg PO Q8H [facility] Last Admin: 10/01/17 05:42 Dose: 975 mg Acetylcysteine (Acetylcysteine 20%) 4 ml INH RQ6 [facility] Last Admin: 10/01/17 07:11 Dose: 4 ml Albuterol/Ipratropium (Duoneb 3 Mg/0.5 Mg (3 Ml) Ud) 3 ml INH RQ6 [facility] Last Admin: 10/01/17 07:11 Dose: 3 ml Albuterol/Ipratropium (Duoneb 3 Mg/0.5 Mg (3 Ml) Ud) 3 ml INH RQ2 PRN PRN Reason: Wheezing Amlodipine Besylate (Norvasc) 5 mg PO DAILY [facility] Last Admin: 10/01/17 09:44 Dose: 5 mg Docusate Sodium (Colace) 100 mg PO TID [facility] Last Admin: 10/01/17 09:44 Dose: 100 mg Enoxaparin Sodium (Lovenox) 40 mg SC Q24H [facility] Last Admin: 09/30/17 12:59 Dose: 40 mg Ergocalciferol (Drisdol 50,000 Intl Units Cap) 1 cap PO Q7D [facility] Last Admin: 09/30/17 15:40 Dose: 1 cap Gabapentin (Neurontin) 800 mg PO TID [facility] Last Admin: 09/30/17 17:14 Dose: 800 mg Hydromorphone HCl (Dilaudid) 0.5 mg IVP Q4H PRN PRN Reason: Pain, severe (8-10) Last Admin: 10/01/17 03:27 Dose: 0.5 mg Vancomycin/Sodium Chloride (Vancomycin 1 Gm/Ns 200 Ml) 1 gm in 200 mls @ 133 mls/hr IVPB Q12H [facility] Stop: 10/06/17 10:01 Piperacillin Sod/Tazobactam (Sod 3.375 gm/ Sodium Chloride) 100 mls @ 200 mls/ hr IVPB Q6H [facility] Morphine Sulfate (Morphine) 2 mg IVP Q4 PRN PRN Reason: Pain, moderate (4-7) Last Admin: 10/01/17 09:42 Dose: 2 mg Nicotine (Nicoderm Cq) 1 patch TD DAILY [facility] Last Admin: 09/30/17 09:40 Dose: 1 patch Ondansetron HCl (Zofran Inj) 4 mg IVP Q6H PRN PRN Reason: Nausea/Vomiting Pantoprazole Sodium (Protonix Ec Tab) 40 mg PO DAILY [facility] Last Admin: 10/01/17 09:44 Dose: 40 mg Promethazine HCl (Phenergan Syrup) 12.5 mg PO Q6 PRN PRN Reason: Cough - Labs Labs: 10/01/17 07:39 10/01/17 07:39
[2017-10-01] MEDS: Enoxaparin 40 mg Syringe SC SCH (12:26)
[2017-10-01] MEDS: Vancomycin 1 gm/NS 200 ml 1 GM/200 ML BAG IVPB SCH (22:48)
[2017-10-02] MEDS: HYDROmorphone 0.5 mg/0.5 ml ISec IVP PRN ×5 (00:32→19:36)
[2017-10-02 00:47] VITALS: RESP 20
[2017-10-02] MEDS: Albuterol-Ipratrop 3 mg / 0.5 (3 ml) UD INH SCH ×4 (02:09→20:14)
[2017-10-02] MEDS: Acetylcysteine 20% Inhal Soln (4ml) INH SCH ×4 (02:09→20:14)
[2017-10-02 06:37] LABS: BASO # 0.1 K/uL (0.0-0.2); BASO % 0.7 % (0.0-2.0); EOS # 0.7 K/uL (0.0-0.7); EOS % 4.6 % (0.0-4.0); LYMPH # 1.8 K/uL (1.0-4.3); MEAN CELL VOLUME 85.8 fL (80.0-94.0); MEAN CORPUSCULAR HEMOGLOBIN 29.2 pg (27.0-31.0); MEAN PLATELET VOLUME 7.7 fL (7.2-11.7); MONO # 1.3 K/uL (0.0-0.8); MONO % 9.5 % (0.0-10.0); RED CELL DISTRIBUTION WIDTH 13.1 % (11.5-14.5); WHITE BLOOD COUNT 14.2 K/uL (4.8-10.8)
[2017-10-02 06:52] LABS: RBC URINE 1 /hpf (0-3); URINE BACTERIA MOD (<OCC); URINE BILIRUBIN NEGATIVE (NEGATIVE); URINE BLOOD NEGATIVE (NEGATIVE); URINE COLOR Yellow (YELLOW); URINE GLUCOSE (UA) NORMAL (Normal); URINE KETONE TRACE mg/dL (NEGATIVE); URINE LEUKOCYTE ESTERASE NEG Leu/uL (Negative); URINE PROTEIN NEGATIVE (NEGATIVE); WBC URINE 4 /hpf (0-5)
[2017-10-02 06:54] LABS: ALB/GLOB RATIO 0.9 (1.0-2.1); ALKALINE PHOSPHATASE 103 U/L (38-126); ALT/SGPT 47 U/L (21-72); AST/SGOT 21 U/L (17-59); BILIRUBIN,TOTAL 0.8 mg/dL (0.2-1.3); BLOOD UREA NITROGEN 9 mg/dL (9-20); CALCIUM 8.6 mg/dl (8.6-10.4); CARBON DIOXIDE 31 mmol/L (22-30); CHLORIDE 99 mmol/L (98-107); GFR AFRICAN-AMERICAN > 60; GLUCOSE,RANDOM 122 mg/dL (75-110); MAGNESIUM 2.1 mg/dL (1.6-2.3); PHOSPHOROUS 4.5 mg/dL (2.5-4.5); POTASSIUM 3.7 mmol/L (3.6-5.2); SODIUM 139 mmol/L (132-148); TOTAL PROTEIN 8.5 g/dL (6.3-8.3)
--- NOTE | 2017-10-02 10:33 | CP.PCM.PN ---
Subjective - Date & Time of Evaluation Date of Evaluation: 10/02/17 Time of Evaluation: 10:15 - Subjective Subjective: Patient was seen and examined by me. He reports feeling fine when I saw him. Denied fevers, denied night sweats He reported the pain was well controlled when I saw him He does report + dark green sputum. There is a pre-liminary gram negative luis felipe on the sputum culture from yesterday Started on Aztreonam IV Q8hrs, as he has Pencillin allergy. We also talked about the patient now having a BM in 4 days. I suggested to him milk of magnesium - he said no he did not want this since he is worried that it will work and that he will have difficulty getting to commode. Will order for bedside commode if he wants to try Objective - Vital Signs/Intake and Output Vital Signs (last 24 hours): Temp Pulse Resp BP Pulse Ox 98.1 F 94 H 20 154/84 H 96 10/02/17 08:59 10/02/17 08:59 10/02/17 08:59 10/02/17 08:59 10/02/17 08:59 Intake and Output: 10/02/17 10/02/17 06:59 18:59 Intake Total 920 Output Total 500 Balance 420 - Medications Medications: Current Medications Acetaminophen (Tylenol 325mg Tab) 975 mg PO Q8H [facility] Last Admin: 10/02/17 06:34 Dose: 975 mg Acetylcysteine (Acetylcysteine 20%) 4 ml INH RQ6 [facility] Last Admin: 10/02/17 07:10 Dose: 4 ml Albuterol/Ipratropium (Duoneb 3 Mg/0.5 Mg (3 Ml) Ud) 3 ml INH RQ6 [facility] Last Admin: 10/02/17 07:10 Dose: 3 ml Albuterol/Ipratropium (Duoneb 3 Mg/0.5 Mg (3 Ml) Ud) 3 ml INH RQ2 PRN PRN Reason: Wheezing Amlodipine Besylate (Norvasc) 5 mg PO DAILY [facility] Last Admin: 10/01/17 09:44 Dose: 5 mg Docusate Sodium (Colace) 100 mg PO TID [facility] Last Admin: 10/01/17 18:45 Dose: 100 mg Enoxaparin Sodium (Lovenox) 40 mg SC Q24H [facility] Last Admin: 10/01/17 12:26 Dose: 40 mg Ergocalciferol (Drisdol 50,000 Intl Units Cap) 1 cap PO Q7D [facility] Last Admin: 09/30/17 15:40 Dose: 1 cap Gabapentin (Neurontin) 800 mg PO TID [facility] Last Admin: 10/01/17 18:45 Dose: 800 mg Hydromorphone HCl (Dilaudid) 0.5 mg IVP Q4H PRN PRN Reason: Pain, severe (8-10) Last Admin: 10/02/17 06:34 Dose: 0.5 mg Vancomycin/Sodium Chloride (Vancomycin 1 Gm/Ns 200 Ml) 1 gm in 200 mls @ 133 mls/hr IVPB Q12H [facility] Stop: 10/06/17 10:01 Last Admin: 10/01/17 22:48 Dose: 133 mls/hr Aztreonam 2 gm/ Sodium (Chloride) 100 mls @ 200 mls/hr IVPB Q8H [facility] Morphine Sulfate (Morphine) 2 mg IVP Q4 PRN PRN Reason: Pain, moderate (4-7) Last Admin: 10/02/17 08:38 Dose: 2 mg Nicotine (Nicoderm Cq) 1 patch TD DAILY [facility] Last Admin: 10/01/17 13:55 Dose: 1 patch Ondansetron HCl (Zofran Inj) 4 mg IVP Q6H PRN PRN Reason: Nausea/Vomiting Pantoprazole Sodium (Protonix Ec Tab) 40 mg PO DAILY [facility] Last Admin: 10/01/17 09:44 Dose: 40 mg Promethazine HCl (Phenergan Syrup) 12.5 mg PO Q6 PRN PRN Reason: Cough - Labs Labs: 10/02/17 06:29 10/02/17 06:29 - Constitutional Appears: Well, Non-toxic, No Acute Distress - Head Exam Head Exam: NORMAL INSPECTION, NORMOCEPHALIC - Eye Exam Eye Exam: EOMI, Normal appearance - ENT Exam ENT Exam: Mucous Membranes Moist - Respiratory Exam Respiratory Exam: Clear to Ausculation Bilateral, NORMAL BREATHING PATTERN - Cardiovascular Exam Cardiovascular Exam: REGULAR RHYTHM - GI/Abdominal Exam GI & Abdominal Exam: Soft. absent: Distended, Firm, Guarding, Rigid, Tenderness - Neurological Exam Neurological Exam: Alert, Awake, Oriented x3 Neuro motor strength exam: Left Upper Extremity: 5, Right Upper Extremity: 5 - Psychiatric Exam Psychiatric exam: Normal Affect, Normal Mood - Skin Skin Exam: Normal Color, Warm Assessment and Plan - Assessment and Plan (Free Text) Assessment: 52M with PMHx of HTN, COPD, Asthma, HLD, Anxiety who is s/p left TKR. During extubation he desaturated to 89-90%. Medicine Team consulted for medical management. Gram Negative Luis Felipe - Leukocytosis 10/02: Patient is doing well, however + sputum culture prelimnary. The WBC did decrease today. On Vancomycin IV, will add on Aztreonam for gram negative coverage. The previous CXRAYs have not shown findings for infiltrates. We need to get a different incentive spirometry so he does not use previous one. Pending blood culture S/P Left TKR 10/02: Pain is well controlled. He is pending rehab placement at this time. When he is accepted probably could go there with PO abx once the sputum culture returns. However we need to wait on the blood cultures to return as well, Meds: Dilaudid PRN for severe, Morphine PRN for moderate, Colace TID History of smoking COPD On nicotin patch, on nebulizers. Not wheezing SpO2 have been > 95% on room air Hx HTN Continue norvasc 5mg PO QD Hx of Tobacco Abuse Disorder Smoking cessation encouraged Nicotine Patch Prophylactic Measures GI PPX: 40 mg PO daily DVT PPX: Lovenox 40mg SC daily PT Eval - TCU
[2017-10-02] MEDS: Pantoprazole 40 mg EC Tab PO SCH (10:39)
[2017-10-02] MEDS: Vancomycin 1 gm/NS 200 ml 1 GM/200 ML BAG IVPB SCH ×2 (10:39→21:39)
[2017-10-02] MEDS: Enoxaparin 40 mg Syringe SC SCH (11:21)
[2017-10-02] MEDS: POLYETHYLENE GLYCOL 3350 17 GM/Dose PACKET PO SCH ×2 (11:21→17:09)
[2017-10-02] MEDS: Aztreonam 2 GM in Sodium Chloride 0.9% 100 ML IVPB SCH ×2 (12:07→19:36)
[2017-10-02] MEDS ORDERED: Moxifloxacin IV 400mg/250ml NS 400 MG/250 ML BAG IVPB ONE (18:00)
[2017-10-03] MEDS: HYDROmorphone 0.5 mg/0.5 ml ISec IVP PRN ×4 (00:44→13:30)
[2017-10-03] MEDS: Albuterol-Ipratrop 3 mg / 0.5 (3 ml) UD INH SCH ×3 (01:49→13:42)
[2017-10-03] MEDS: Acetylcysteine 20% Inhal Soln (4ml) INH SCH ×3 (01:50→13:42)
[2017-10-03] MEDS: Aztreonam 2 GM in Sodium Chloride 0.9% 100 ML IVPB SCH (03:30)
[2017-10-03 08:14] LABS: BASO # 0.1 K/uL (0.0-0.2); BASO % 0.6 % (0.0-2.0); EOS # 0.9 K/uL (0.0-0.7); EOS % 6.6 % (0.0-4.0); HEMATOCRIT 34.4 % (35.0-51.0); LYMPH # 2.1 K/uL (1.0-4.3); LYMPH % 15.9 % (20.0-40.0); MEAN CELL VOLUME 86.3 fL (80.0-94.0); MEAN CORPUSCULAR HEMOGLOBIN 29.6 pg (27.0-31.0); MEAN CORPUSCULAR HGB CONC 34.3 g/dL (33.0-37.0); MEAN PLATELET VOLUME 7.5 fL (7.2-11.7); MONO # 1.2 K/uL (0.0-0.8); MONO % 9.2 % (0.0-10.0); RED CELL DISTRIBUTION WIDTH 12.8 % (11.5-14.5)
[2017-10-03 08:35] LABS: ALB/GLOB RATIO 1.2 (1.0-2.1); ALKALINE PHOSPHATASE 105 U/L (38-126); ALT/SGPT 52 U/L (21-72); AST/SGOT 24 U/L (17-59); BILIRUBIN,TOTAL 0.6 mg/dL (0.2-1.3); BLOOD UREA NITROGEN 10 mg/dL (9-20); CALCIUM 7.7 mg/dl (8.6-10.4); CARBON DIOXIDE 29 mmol/L (22-30); CHLORIDE 102 mmol/L (98-107); GFR AFRICAN-AMERICAN > 60; GLUCOSE,RANDOM 104 mg/dL (75-110); MAGNESIUM 1.9 mg/dL (1.6-2.3); PHOSPHOROUS 3.7 mg/dL (2.5-4.5); POTASSIUM 3.5 mmol/L (3.6-5.2); SODIUM 138 mmol/L (132-148); TOTAL PROTEIN 6.3 g/dL (6.3-8.3)
[2017-10-03] MEDS: Pantoprazole 40 mg EC Tab PO SCH (10:46)
[2017-10-03] MEDS: POLYETHYLENE GLYCOL 3350 17 GM/Dose PACKET PO SCH (10:46)
--- NOTE | 2017-10-03 12:11 | CP.PCM.PN ---
<Ernestine Acevedo - Last Filed: 10/03/17 12:11> Subjective - Date & Time of Evaluation Date of Evaluation: 10/03/17 Time of Evaluation: 12:03 - Subjective Subjective: Progress note for Dr. Thomason Patient seen and examined at bedside. No acute events overnight. Patient denies fever, chills, nausea, vomiting. Patient admits to left leg pain which is concurrent with recent surgery. Patient states he's doing well. still has not had bowel movement. Patient has been taking stool softeners as ordered. Patient states he's going to rehab today. Objective - Vital Signs/Intake and Output Vital Signs (last 24 hours): Temp Pulse Resp BP Pulse Ox 97.7 F 85 20 135/79 94 L 10/03/17 09:14 10/03/17 09:14 10/03/17 09:14 10/03/17 09:14 10/03/17 09:14 Intake and Output: 10/03/17 10/03/17 06:59 18:59 Intake Total 460 Output Total 600 Balance -140 - Medications Medications: Current Medications Acetaminophen (Tylenol 325mg Tab) 975 mg PO Q8H [facility] Last Admin: 10/03/17 06:06 Dose: 975 mg Acetylcysteine (Acetylcysteine 20%) 4 ml INH RQ6 [facility] Last Admin: 10/03/17 07:13 Dose: 4 ml Albuterol/Ipratropium (Duoneb 3 Mg/0.5 Mg (3 Ml) Ud) 3 ml INH RQ6 [facility]BL[facility] Last Admin: 10/03/17 07:13 Dose: 3 ml Albuterol/Ipratropium (Duoneb 3 Mg/0.5 Mg (3 Ml) Ud) 3 ml INH RQ2 PRN PRN Reason: Wheezing Amlodipine Besylate (Norvasc) 5 mg PO DAILY [facility] Last Admin: 10/03/17 10:46 Dose: 5 mg Docusate Sodium (Colace) 100 mg PO TID [facility] Last Admin: 10/03/17 10:46 Dose: 100 mg Enoxaparin Sodium (Lovenox) 40 mg SC Q24H [facility] Last Admin: 10/02/17 11:21 Dose: 40 mg Ergocalciferol (Drisdol 50,000 Intl Units Cap) 1 cap PO Q7D [facility] Last Admin: 09/30/17 15:40 Dose: 1 cap Gabapentin (Neurontin) 800 mg PO TID [facility] Last Admin: 10/03/17 10:46 Dose: 800 mg Hydromorphone HCl (Dilaudid) 0.5 mg IVP Q4H PRN PRN Reason: Pain, severe (8-10) Last Admin: 10/03/17 08:42 Dose: 0.5 mg Morphine Sulfate (Morphine) 2 mg IVP Q4 PRN PRN Reason: Pain, moderate (4-7) Last Admin: 10/03/17 06:06 Dose: 2 mg Nicotine (Nicoderm Cq) 1 patch TD DAILY [facility] Last Admin: 10/03/17 10:45 Dose: 1 patch Ondansetron HCl (Zofran Inj) 4 mg IVP Q6H PRN PRN Reason: Nausea/Vomiting Pantoprazole Sodium (Protonix Ec Tab) 40 mg PO DAILY [facility] Last Admin: 10/03/17 10:46 Dose: 40 mg Polyethylene Glycol (Miralax) 17 gm PO BID [facility] Stop: 10/04/17 18:01 Last Admin: 10/03/17 10:46 Dose: 17 gm Promethazine HCl (Phenergan Syrup) 12.5 mg PO Q6 PRN PRN Reason: Cough - Labs Labs: 10/03/17 07:57 10/03/17 07:57 - Constitutional Appears: Non-toxic, No Acute Distress - Head Exam Head Exam: NORMAL INSPECTION - Eye Exam Eye Exam: EOMI, Normal appearance - ENT Exam ENT Exam: Mucous Membranes Moist - Neck Exam Neck Exam: Full ROM. absent: Tenderness, Thyromegaly - Respiratory Exam Respiratory Exam: Clear to Ausculation Bilateral, NORMAL BREATHING PATTERN. absent: Decreased Breath Sounds - Cardiovascular Exam Cardiovascular Exam: REGULAR RHYTHM, +S1, +S2. absent: Bradycardia, Tachycardia - GI/Abdominal Exam GI & Abdominal Exam: Distended, Soft, Normal Bowel Sounds. absent: Tenderness, Rebound - Extremities Exam Extremities Exam: absent: Pedal Edema Additional comments: left leg with bandages at incision sites. c/d/i bilaterally. - Neurological Exam Neurological Exam: Alert, Awake, Oriented x3 - Psychiatric Exam Psychiatric exam: Normal Affect, Normal Mood - Skin Skin Exam: Dry, Intact, Normal Color, Warm Assessment and Plan - Assessment and Plan (Free Text) Assessment: 52M with PMHx of HTN, COPD, Asthma, HLD, Anxiety who is s/p left TKR. During extubation he desaturated to 89-90%. Medicine Team consulted for medical management. Gram Negative Luis Felipe - Leukocytosis 10/02: Patient is doing well, however + sputum culture prelimnary. The WBC did decrease today. On Vancomycin IV, will add on Aztreonam for gram negative coverage. The previous CXRAYs have not shown findings for infiltrates. We need to get a different incentive spirometry so he does not use previous one. Pending blood culture S/P Left TKR 10/02: Pain is well controlled. He is pending rehab placement at this time. When he is accepted probably could go there with PO antibiotics once the sputum culture returns. However we need to wait on the blood cultures to return as well , Meds: Dilaudid PRN for severe, Morphine PRN for moderate, Colace TID History of smoking COPD On nicotin patch, on nebulizers. Not wheezing SpO2 have been > 95% on room air Hx HTN Continue Norvasc 5mg PO QD Hx of Tobacco Abuse Disorder Smoking cessation encouraged Nicotine Patch Prophylactic Measures GI PPX: 40 mg PO daily DVT PPX: Lovenox 40mg SC daily PT Eval - TCU Patient is cleared to go to TCU by Dr. Falcon. Patient states he's going today per Dr. Falcon. Patient is medically stable for transfer to TCU. Dr. Katelin Acevedo, DO PGY1 <Armando Thomason - Last Filed: 10/03/17 13:10> Objective - Vital Signs/Intake and Output Vital Signs (last 24 hours): Temp Pulse Resp BP Pulse Ox 97.7 F 85 20 135/79 94 L 10/03/17 09:14 10/03/17 09:14 10/03/17 09:14 10/03/17 09:14 10/03/17 09:14 Intake and Output: 10/03/17 10/03/17 06:59 18:59 Intake Total 460 Output Total 600 Balance -140 - Medications Medications: Current Medications Acetaminophen (Tylenol 325mg Tab) 975 mg PO Q8H [facility] Last Admin: 10/03/17 06:06 Dose: 975 mg Acetylcysteine (Acetylcysteine 20%) 4 ml INH RQ6 [facility] Last Admin: 10/03/17 07:13 Dose: 4 ml Albuterol/Ipratropium (Duoneb 3 Mg/0.5 Mg (3 Ml) Ud) 3 ml INH RQ6 [facility] Last Admin: 10/03/17 07:13 Dose: 3 ml Albuterol/Ipratropium (Duoneb 3 Mg/0.5 Mg (3 Ml) Ud) 3 ml INH RQ2 PRN PRN Reason: Wheezing Amlodipine Besylate (Norvasc) 5 mg PO DAILY [facility] Last Admin: 10/03/17 10:46 Dose: 5 mg Docusate Sodium (Colace) 100 mg PO TID [facility] Last Admin: 10/03/17 10:46 Dose: 100 mg Enoxaparin Sodium (Lovenox) 40 mg SC Q24H [facility] Last Admin: 10/03/17 12:17 Dose: 40 mg Ergocalciferol (Drisdol 50,000 Intl Units Cap) 1 cap PO Q7D [facility] Last Admin: 09/30/17 15:40 Dose: 1 cap Gabapentin (Neurontin) 800 mg PO TID [facility] Last Admin: 10/03/17 10:46 Dose: 800 mg Home Med (Tizanidine [Zanaflex]) 4 mg PO DAILY [facility] Hydromorphone HCl (Dilaudid) 0.5 mg IVP Q4H PRN PRN Reason: Pain, severe (8-10) Last Admin: 10/03/17 08:42 Dose: 0.5 mg Ibuprofen (Motrin Tab) 800 mg PO TID [facility] Morphine Sulfate (Morphine) 2 mg IVP Q4 PRN PRN Reason: Pain, moderate (4-7) Last Admin: 10/03/17 06:06 Dose: 2 mg Nicotine (Nicoderm Cq) 1 patch TD DAILY [facility] Last Admin: 10/03/17 10:45 Dose: 1 patch Ondansetron HCl (Zofran Inj) 4 mg IVP Q6H PRN PRN Reason: Nausea/Vomiting Oxycodone/Acetaminophen (Percocet 5/325 Mg Tab) 2 tab PO Q6H PRN PRN Reason: Pain, severe (8-10) Stop: 10/06/17 12:58 Pantoprazole Sodium (Protonix Ec Tab) 40 mg PO DAILY [facility] Last Admin: 10/03/17 10:46 Dose: 40 mg Polyethylene Glycol (Miralax) 17 gm PO BID [facility] Stop: 10/04/17 18:01 Last Admin: 10/03/17 10:46 Dose: 17 gm Promethazine HCl (Phenergan Syrup) 12.5 mg PO Q6 PRN PRN Reason: Cough - Labs Labs: 10/03/17 07:57 10/03/17 07:57 Attending/Attestation - Attestation I have personally seen and examined this patient.: Yes I have fully participated in the care of the patient.: Yes I have reviewed all pertinent clinical information, including history, physical exam and plan: Yes Notes (Text): 10/03/17 13:06 Medical Consult: Agree with the above note by the medical practice manager - HOWEVER I NEED TO POINT OUT it is a word for word copy what I wrote yesterday. I will talk to her about this. Regardless if the patient does go to rehab today he certainly is clear from a medical stand point. There is an RX for Cipro BID in the chart. His WBC has been decreasing. He grew out + sputum for haemophilus and has been on IV Aztreonam as well as IV Avelox. thank you Armando Thomason
[2017-10-03] MEDS: Enoxaparin 40 mg Syringe SC SCH (12:17)
[2017-10-03] MEDS ORDERED: Oxycodone/Acetaminophen 5/325 mg Tab PO PRN (12:57)
[2017-10-03] MEDS ORDERED: Potassium Chloride 20 mEq ER Tab PO ONE (13:30)
[2017-10-03 14:59] VITALS: BP 145/92; PULSE 96; TEMP 97.9; O2SAT 96
--- NOTE | 2017-10-04 08:56 | CP.PCM.DIS ---
Provider - Provider Date of Admission: 09/28/17 07:37 discharge date 10/03/2017 Attending physician: Ridge Falcon MD Consults: hospitalist Time Spent in preparation of Discharge (in minutes): 5 Diagnosis - Discharge Diagnosis (1) Primary osteoarthritis of left knee Status: Acute (2) HTN (hypertension) Status: Chronic (3) Asthma Status: Chronic Hospital Course - Lab Results Lab Results: Micro Results 10/01/17 16:30 Blood Blood Culture - Preliminary NO GROWTH AFTER 48 HOURS 10/01/17 14:00 Blood Blood Culture - Preliminary NO GROWTH AFTER 48 HOURS 10/01/17 Unknown Urine,Clean Catch Urine Culture - Final No Growth (<1,000 CFU/ML) 09/29/17 05:55 Sputum Gram Stain - Final 09/29/17 05:55 Sputum Sputum Culture - Final Haemophilus Influenzae Ii Most Recent Lab Values WBC 13.0 K/uL (4.8-10.8) H 10/03/17 07:57 RBC 3.99 Mil/uL (4.40-5.90) L 10/03/17 07:57 Hgb 11.8 g/dL (12.0-18.0) L 10/03/17 07:57 Hct 34.4 % (35.0-51.0) L 10/03/17 07:57 MCV 86.3 fL (80.0-94.0) 10/03/17 07:57 MCH 29.6 pg (27.0-31.0) 10/03/17 07:57 MCHC 34.3 g/dL (33.0-37.0) 10/03/17 07:57 RDW 12.8 % (11.5-14.5) 10/03/17 07:57 Plt Count 334 K/uL (130-400) 10/03/17 07:57 MPV 7.5 fL (7.2-11.7) 10/03/17 07:57 Neut % (Auto) 67.7 % (50.0-75.0) 10/03/17 07:57 Lymph % (Auto) 15.9 % (20.0-40.0) L 10/03/17 07:57 [place] % (Auto) 9.2 % (0.0-10.0) 10/03/17 07:57 Eos % (Auto) 6.6 % (0.0-4.0) H 10/03/17 07:57 Baso % (Auto) 0.6 % (0.0-2.0) 10/03/17 07:57 Neut # 8.8 K/uL (1.8-7.0) H 10/03/17 07:57 Lymph # 2.1 K/uL (1.0-4.3) 10/03/17 07:57 [place] # 1.2 K/uL (0.0-0.8) H 10/03/17 07:57 Eos # 0.9 K/uL (0.0-0.7) H 10/03/17 07:57 Baso # 0.1 K/uL (0.0-0.2) 10/03/17 07:57 Sodium 138 mmol/L (132-148) 10/03/17 07:57 Potassium 3.5 mmol/L (3.6-5.2) L 10/03/17 07:57 Chloride 102 mmol/L (98-107) 10/03/17 07:57 Carbon Dioxide 29 mmol/L (22-30) 10/03/17 07:57 Anion Gap 11 (10-20) 10/03/17 07:57 BUN 10 mg/dL (9-20) 10/03/17 07:57 Creatinine 0.6 mg/dL (0.8-1.5) L 10/03/17 07:57 Est GFR ( Amer) > 60 10/03/17 07:57 Est GFR (Non-Af Amer) > 60 10/03/17 07:57 Random Glucose 104 mg/dL (75-110) 10/03/17 07:57 Hemoglobin A1c 4.9 % (4.2-6.5) 09/29/17 07:18 Calcium 7.7 mg/dl (8.6-10.4) L 10/03/17 07:57 Phosphorus 3.7 mg/dL (2.5-4.5) 10/03/17 07:57 Magnesium 1.9 mg/dL (1.6-2.3) 10/03/17 07:57 Total Bilirubin 0.6 mg/dL (0.2-1.3) 10/03/17 07:57 AST 24 U/L (17-59) 10/03/17 07:57 ALT 52 U/L (21-72) 10/03/17 07:57 Alkaline Phosphatase 105 U/L (38-126) 10/03/17 07:57 Total Protein 6.3 g/dL (6.3-8.3) 10/03/17 07:57 Albumin 3.4 g/dL (3.5-5.0) L 10/03/17 07:57 Globulin 2.9 gm/dL (2.2-3.9) 10/03/17 07:57 Albumin/Globulin Ratio 1.2 (1.0-2.1) 10/03/17 07:57 Triglycerides 130 mg/dL (0-149) 09/29/17 07:18 Cholesterol 181 mg/dL (0-199) 09/29/17 07:18 LDL Cholesterol Direct 127 mg/dL (0-129) 09/29/17 07:18 HDL Cholesterol 31 mg/dL (30-70) 09/29/17 07:18 25-OH Vitamin D Total 21.1 NG/ML (30.0-100.0) L 09/30/17 11:21 Procalcitonin 0.15 NG/ML (0.19-0.49) L 10/01/17 12:57 Urine Color Yellow (YELLOW) 10/02/17 06:40 Urine Clarity Clear (Clear) 10/02/17 06:40 Urine pH 7.0 (5.0-8.0) 10/02/17 06:40 Ur Specific [place] 1.016 (1.003-1.030) 10/02/17 06:40 Urine Protein Negative mg/dL (NEGATIVE) 10/02/17 06:40 Urine Glucose (UA) Normal mg/dL (Normal) 10/02/17 06:40 Urine Ketones Trace mg/dL (NEGATIVE) 10/02/17 06:40 Urine Blood Negative (NEGATIVE) 10/02/17 06:40 Urine Nitrate Negative (NEGATIVE) 10/02/17 06:40 Urine Bilirubin Negative (NEGATIVE) 10/02/17 06:40 Urine Urobilinogen 2.0 mg/dL (0.2-1.0) 10/02/17 06:40 Ur Leukocyte Esterase Neg [place]oder[place]/uL (Negative) 10/02/17 06:40 Urine WBC (Auto) 4 /hpf (0-5) 10/02/17 06:40 Urine RBC (Auto) 1 /hpf (0-3) 10/02/17 06:40 Amorphous Sediment Rare /ul (<OCC) H 10/02/17 06:40 Urine Bacteria Mod (<OCC) H 10/02/17 06:40 Vancomycin Trough 5.4 ug/mL (5.0-10.0) 10/02/17 19:26 Influenza Typ A,B (EIA) Negative for flu a/b (NEGATIVE) 09/30/17 07:15 Blood Type A NEGATIVE 09/28/17 08:46 Antibody Screen Negative 09/28/17 08:46 Discharge Exam - Head Exam Head Exam: NORMAL INSPECTION Discharge Plan - Discharge Medications Prescriptions: Ciprofloxacin HCl [Cipro] 250 mg PO BID #10 tablet - Follow Up Plan Condition: GOOD Disposition: REHAB FACILITY/REHAB UNIT Instructions: How to Stop Smoking (DC), Cigarette Smoking and Your Health (GEN) , Knee Replacement (DC) Additional Instructions: patient to take cipro 250 mg POBID #10 tabs (total of 5 days) pain management per DR. Falcon Percocet 5/325 mg PO Q6H PRN severe pain Patient to be discharged to TCU for rehabilitation Referrals: Ridge Falcon MD [Staff Provider] -
[2017-10-04] MEDS ORDERED: TIZANIDINE 4 MG PO SCH (10:00)
== END 2017-10-03 15:10 | DRG 470 ==
LOC: C.9S 07:37 → C.6T 19:50
PROVIDERS: ADMIT Orthopaedic Surgery; ATTEND Orthopaedic Surgery
PROC: 0SRD0JZ Replacement of Left Knee Joint with Synthetic Substitute, Open Approach (ICD-10-PCS; principal; 2017-09-28 10:44)
DX: M17.12 Unilateral primary osteoarthritis, left knee (principal); E78.5 Hyperlipidemia, unspecified; F17.200 Nicotine dependence, unspecified, uncomplicated; I10 Essential (primary) hypertension; J44.9 Chronic obstructive pulmonary disease, unspecified